=== PATIENT | male | born 1940 | race Hispanic/Latino ===

== ENCOUNTER → 2017-04-27 | Outpatient (CLI) | payer OTHER | END | disposition home or self-care (01) | LOC: RAH 12:34 | PROVIDERS: ATTEND Urology | DX: N13.30 Unspecified hydronephrosis (principal); N20.0 Calculus of kidney; K76.0 Fatty (change of) liver, not elsewhere classified; N28.1 Cyst of kidney, acquired; K57.30 Diverticulosis of large intestine without perforation or abscess without bleeding | CPT/HCPCS: 74176 ==

== ENCOUNTER → 2021-10-18 | Outpatient (CLI) | payer MEDICARE | END | disposition home or self-care (01) | LOC: RAH 11:40 | PROVIDERS: ATTEND Urology | DX: N28.1 Cyst of kidney, acquired (principal) | CPT/HCPCS: 76770 ==

== ENCOUNTER 2024-01-04 18:14 | Inpatient (IN) | payer MEDICARE ==
[~2024-01-04] VITALS: Ht 177.8 cm; Wt 94.8 kg
[2024-01-04 19:19] LABS: BASOPHILS # (AUTO) 0.07 K/uL (0.00-0.20); BASOPHILS % (AUTO) 0.5 % (0.0-5.0); EOSINOPHILS # (AUTO) 0.15 K/uL (0.00-0.70); EOSINOPHILS % (AUTO) 1.1 % (0.0-8.0); HEMATOCRIT 45.5 % (42-54); IMMATURE GRANULOCYTE ABSOLUTE 0.09 K/uL (0-1); LYMPHOCYTES # (AUTO) 1.2 K/uL (1.0-4.8); LYMPHOCYTES % (AUTO) 9.3 % (21.0-51.0); MEAN CORPUSCULAR HEMOGLOBIN 28.2 pg (27.0-33.0); MEAN CORPUSCULAR HGB CONC 30.8 g/dL (32.0-36.0); MEAN CORPUSCULAR VOLUME 91.7 fL (79-99); MONOCYTES # (AUTO) 1.2 K/uL (0.1-1.0); MONOCYTES % (AUTO) 9.3 % (3.0-13.0); NEUTROPHILS # (AUTO) 10.5 K/uL (1.8-7.7); NEUTROPHILS % (AUTO) 79.1 % (40.0-77.0); PLATELET COUNT (AUTO) 258 K/uL (130-400); RED BLOOD CELL COUNT(AUTO) 4.96 MIL/uL (4.50-6.20); RED CELL DISTRIBUTION WIDTH 13.9 % (11.0-15.5); WHITE BLOOD COUNT (AUTO) 13.2 K/uL (4.8-10.8)
[2024-01-04 19:29] LABS: CREATININE 1.5 mg/dL (0.5-1.3); POTASSIUM 3.9 mmol/L (3.5-5.1)
[2024-01-04 19:51] LABS: APPEARANCE,URINE CLEAR (CLEAR); BILIRUBIN,URINE NEGATIVE (NEGATIVE); COLOR,URINE YELLOW (YELLOW); GLUCOSE, URINE (UA) NEGATIVE (NEGATIVE); KETONES,URINE NEGATIVE (NEGATIVE); LEUKOCYTE ESTERASE ,URINE 500 Leu/uL (NEGATIVE); NITRATE,URINE NEGATIVE (NEGATIVE); PH,URINE 5.5 (5.0-8.0); PROTEIN,URINE 20 mg/dL (NEGATIVE); UROBILINOGEN,URINE 0.2 mg/dL (0.2-1.0)
[2024-01-04 19:55] LABS: ADD UA MICROSCOPIC YES
[2024-01-04 19:57] LABS: BACTERIA,URINE RARE /HPF (None Seen); MUCUS,URINE RARE LPF (None Seen); SQUAMOUS EPITHELIAL CELL,UR RARE /HPF (0-2); WBC,URINE 26-50 /HPF (0-1)
--- NOTE | 2024-01-04 20:19 | HMCIMG ---
CHEST 1VW CLINICAL HISTORY: sob COMPARISON: None TECHNIQUE: Single view of the chest was obtained. FINDINGS: Lungs are hypoventilated. The cardiac size and mediastinum are unremarkable. The bony structures are within normal limits. IMPRESSION: Hypoventilation.
--- NOTE | 2024-01-04 20:35 | ERN ---
ED Note History of Present Illness Stated Complaint: SENT BY DOCTOR Chief Complaint: UTI without Fever Time Seen by MD: 18:31 Time Seen by Midlevel: 18:31 Dictation: The patient is an 83-year-old male with a history of BPH, glaucoma, self catheterization who presents to the emergency department with complaints of generalized body weakness for three weeks. Per patient's patient was sent over by primary doctor for IV antibiotics due to failed outpatient UTI treatment. Per patient was treated with Levaquin, then Augmentin. Denies any fevers, vomiting or diarrhea. Allergies: Coded Allergies: No Known Allergies (Unverified Allergy, Unknown, 01/04/24) Past Medical History Past Medical History: Anxiety, High Cholesterol, UTI, Other Additional Past Medical Hx: GLAUCOMA, BPH, Surgical History: Other RN Note Reviewed/Agreed w/PFSH: Yes Review of System Dictation Constitutional: Negative for fever,chills, and weight loss Eyes: Negative for injury, pain,redness, and discharge ENT: Negative for injury,pain or swelling Cardiovascular: Negative for chest pain, palpitations, and edema Respiratory: Negative for shortness of breath, cough, and wheezing, Abdomen/GI: Negative for abdominal pain, vomiting, diarrhea, and constipation positive for nausea Back: Negative for injury and pain : Negative for injury, bleeding and discharge MS/Extremity: Negative for injury and deformity Skin: Negative for rash, and discoloration Neuro: Negative for headache, numbness, tingling, and seizure positive for weakness Psych: Negative for suicide ideation, homicidal ideation, and hallucinations Initial Vital Sign VS Vital Signs Date Time Temp Pulse Resp B/P (MAP) Pulse Ox O2 Delivery O2 Flow Rate FiO2 01/04/24 18:41 99.3 88 20 118/59 94 Room Air 01/04/24 19:24 0 21 Physical Exam Dictation Vital Signs reviewed General Appearance: Alert, oriented x 3, no acute distress, well developed, nourished. Head and Face: non-traumatic. Eyes: PERRL, pink conjunctivas, eyelid no trauma, anterior chamber with arcus senilis. Ears: Pinnas intact and no signs of trauma or erythema ear canals clear and no discharge TM no erythema Nose: No discharge, no bleeding. Oropharynx: Mouth normal, tongue pink. pharynx clear,no erythema, tonsils no exudates, no abscesses noted, mucous membrane moist Neck: Supple, non-tender, no thyromegaly, no masses, no JVD, no bruits Breast:Deferred Chest:No tenderness, no crepitus, no paradoxical movement, no retractions Lungs:Clear, well-ventilated, symmetric, no rales, no wheezing, no rhonchi, no stridor, good breath sounds bilaterally Heart: Regular rate, regular rhythm, no murmur, no gallops Vascular: no peripheral edema, Abdomen: Firm, positive bowel sounds, nondistended, no guarding, nontender, no rebound, no masses no hepatomegaly, no splenomegaly, no Mueller's sign, no hernias. Rectal: Deferred Genital: Deferred Neurological: Normal speech, motor function intact, sensory function intact Musculoskeletal: Neck nontender, full range of motion, back nontender, full range of motion, Extremities: nontender, full range of motion Skin: Color pink, dry, no turgor, no rash, no lacerations, no abrasions, no contusions. Lymphatic: Deferred Results (Laboratory/Radiology) Laboratory/Radiology Laboratory Tests Test 01/04/24 19:11 01/04/24 19:30 White Blood Count 13.2 K/uL (4.8-10.8) H Red Blood Count 4.96 MIL/uL (4.50-6.20) Hemoglobin 14.0 g/dL (14.0-18.0) Hematocrit 45.5 % (42-54) Mean Corpuscular Volume 91.7 fL (79-99) Mean Corpuscular Hemoglobin 28.2 pg (27.0-33.0) Mean Corpuscular Hemoglobin Concent 30.8 g/dL (32.0-36.0) L Red Cell Distribution Width 13.9 % (11.0-15.5) Platelet Count 258 K/uL (130-400) Mean Platelet Volume 9.4 fL (7.5-10.5) Immature Granulocyte % (Auto) 0.7 % (0-1) Neutrophils (%) (Auto) 79.1 % (40.0-77.0) H Lymphocytes (%) (Auto) 9.3 % (21.0-51.0) L Monocytes (%) (Auto) 9.3 % (3.0-13.0) Eosinophils (%) (Auto) 1.1 % (0.0-8.0) Basophils (%) (Auto) 0.5 % (0.0-5.0) Neutrophils # (Auto) 10.5 K/uL (1.8-7.7) H Lymphocytes # (Auto) 1.2 K/uL (1.0-4.8) Monocytes # (Auto) 1.2 K/uL (0.1-1.0) H Eosinophils # (Auto) 0.15 K/uL (0.00-0.70) Basophils # (Auto) 0.07 K/uL (0.00-0.20) Absolute Immature Granulocyte (auto 0.09 K/uL (0-1) Nucleated Red Blood Cells 0.0 % (0.0-0.19) Sodium Level 133 mmol/L (136-145) L Potassium Level 3.9 mmol/L (3.5-5.1) Chloride Level 96 mmol/L (101-111) L Carbon Dioxide Level 35 mmol/L (21-32) H Blood Urea Nitrogen 25 mg/dL (7-18) H Creatinine 1.5 mg/dL (0.5-1.3) H Glomerular Filtration Rate Calc 46 mL/min (>90) Random Glucose 145 mg/dL (70-105) H Lactic Acid Level 1.9 mmol/L (0.8-2.5) Total Calcium 9.3 mg/dL (8.5-10.1) Troponin I High Sensitivity 6 ng/L (4-75) Urine Color YELLOW (YELLOW) Urine Appearance CLEAR (CLEAR) Urine pH 5.5 (5.0-8.0) Urine Specific [place] 1.020 (1.001-1.031) Urine Protein 20 mg/dL (NEGATIVE) H Urine Glucose (UA) NEGATIVE mg/dL (NEGATIVE) Urine Ketones NEGATIVE mg/dL (NEGATIVE) Urine Occult Blood +- (TRACE) (NEGATIVE) H Urine Nitrate NEGATIVE (NEGATIVE) Urine Bilirubin NEGATIVE mg/dL (NEGATIVE) Urine Urobilinogen 0.2 mg/dL (0.2-1.0) Urine Leukocyte Esterase 500 Pretty/uL (NEGATIVE) H Urine RBC 2-5 /HPF (0-1) H Urine WBC 26-50 /HPF (0-1) H Urine Squamous Epithelial Cells RARE /HPF (0-2) Urine Bacteria RARE /HPF (None Seen) REASON: sob ORDERING PHYSICIAN: ROSE MARIE ORTA MEAT CARRIER PROCEDURE: CXR1VW - CHEST 1VW CHEST 1VW CLINICAL HISTORY: sob COMPARISON: None TECHNIQUE: Single view of the chest was obtained. FINDINGS: Lungs are hypoventilated. The cardiac size and mediastinum are unremarkable. The bony structures are within normal limits. IMPRESSION: Hypoventilation. Labs Reviewed?: Yes EKG: (+) rhythm (Sinus rhythm), (+) FL (180) EKG Comment: EKG 01/04/20241946 ventricular rate 86, regular rate and rhythm, normal sinus rhythm, no STEMI. ED Course ED Course Orders Procedure Category Date Status Time Cbc With Differential LAB 01/04/24 In Process 19:00 Troponin I High LAB 01/04/24 Complete Sensitivity 19:00 Urinalysis Profile LAB 01/04/24 Complete 19:00 12 Lead Ekg Tracing- EKG 01/04/24 Logged Technical 19:00 Chest 1vw RAD 01/04/24 Resulted 19:00 Basic Metabolic Panel LAB 01/04/24 Complete 19:00 Blood Cult ANKUR 01/04/24 In Process 19:34 Lactic Acid LAB 01/04/24 Complete 19:34 Cefepime Hcl 2 Gm PHA 01/04/24 In Process Vial (Maxipime 2 Gm Vi 20:00 0.9%Nacl 1000ml (Ns PHA 01/04/24 Complete 1000ml) 20:00 Culture Urine ANKUR 01/04/24 In Process 19:56 Admit Orders ADM 01/04/24 Transmitted 21:42 Edm Admit Bridge Order ADM 01/04/24 Verified 21:50 Current Medications Medications (Trade) Dose Ordered Sig/Jimmy Route PRN Reason Start Time Stop Time Status Last Admin Dose Admin Cefepime HCl (MAXipime 2 gm vial) 2 gm ONCE IVPB 01/04/24 20:00 01/14/24 19:59 01/04/24 21:16 Sodium Chloride 1,000 ml @ 0 mls/hr ONCE ONCE IV 01/04/24 20:00 01/04/24 20:01 DC 01/04/24 21:16 Vital Signs Date Time Temp Pulse Resp B/P (MAP) Pulse Ox O2 Delivery O2 Flow Rate FiO2 01/04/24 19:24 97.3 88 18 127/59 95 Room Air* 0 21 01/04/24 18:41 99.3 88 20 118/59 94 Room Air Medical Decision Making MDM MDM: The patient is an 83-year-old male history of BPH, glaucoma, self catheterization who presents to the emergency department with complaints of generalized body weakness for three weeks. Per patient's patient was sent over by primary doctor for IV antibiotics due to failed outpatient UTI treatment. Per patient was treated with Levaquin, then Augmentin. Denies any fevers, vomiting or diarrhea. CBC showed mild leukocytosis, no anemia, chemistry showed elevated BUN and creatinine, hyponatremia, hypochloremia, patient received a L of fluids in the ER. Urinalysis positive for UTI. Patient started on cefepime will be admitted for further management. Differential diagnosis: Sepsis, UTI, pyelonephritis, electrolyte imbalance, acute kidney injury Comorbidities: Hyperlipidemia, kidney stones, hearing loss Tests considered and not ordered secondary to shared decision making include: none Previous outside records reviewed: none Risk of complication and/or morbidity or mortality of patient management: The patient meets criteria for admission. Need for emergency major/minor surgery: No There are no social concerns with this patient. I independently interpreted the tests I ordered (labs, urinalysis, etc.). I discussed the case with the hospitalist for admission. Deepika who accepts admission I discussed the case with the following specialists: none. Historian: pateint. I independently interpreted imaging studies and EKGs that I ordered (US, CT, XR, EKG, etc.). External chart review: none. Medical management and examination interpretation discussions were had by me with other qualified healthcare professionals as indicated for the patient's care. DX & DISP Disposition: Inpatient Decision to Admit Date: Jan 04, 2024 Decision to Admit Time: 21:52 Departure Impression: Primary Impression: UTI (urinary tract infection) Additional Impressions: Failure of outpatient treatment, Leukocytosis, Acute kidney injury, Hyponatremia, Hypochloremia, Weakness, Dehydration Condition: Stable Referrals: NAYELY PEREZ MD (PCP) I have reviewed the case, and I agree with, Diagnosis and Plan ROSE MARIE ORTA MEAT CARRIER Jan 04, 2024 20:35
[2024-01-04] MEDS: 0.9%NACL 1000ML 1,000 ML IV ONE (21:16)
[2024-01-04] MEDS: ceFEPime HCL 2 GM VIAL IVPB SCH (21:16)
--- NOTE | 2024-01-04 23:28 | HP ---
[facility] HISTORY AND PHYSICAL Date of Service: Jan 04, 2024 Time of Service: 23:28 Supervising/attending physician: Dr. Rich and Dr. Caren Downing HISTORY OF PRESENT ILLNESS: Mr. Castillo is an 83-year-old male with a history of anxiety, hypercholesterolemia, BPH, glaucoma, recurrent UTIs, and self catheterization who presented to [facility] emergency department for evaluation of generalized body weakness for three weeks. Per patient's patient was sent over by primary doctor for IV antibiotics due to failed outpatient UTI treatment. The patient reports that due to self cath he gets infections twice a year, but responds well to antibiotic treatments pretty fast. Patient reports that he has was placed on Levaquin with no improvement of symptoms then on Augmentin still with no improvement of symptoms. Patient states that his urologist is Dr. Davis, but is retiring soon and need to find a new urologist. The patient denied any fevers, vomiting, or diarrhea. WBC 13.2, UA + LUEK est. GFR 46. ED administered Cefepime and NS 1 L bolus. ED provider requested [facility] admit the patient with the diagnosis of UTI, failed of a patient treatment, leukocytosis, KANDACE, hyponatremia, hypochloremia, weakness, and dehydration. I went to assess the patient at bedside. Patient appeared comfortable, in no distress, breathing even and unlabored. I informed the patient and significant other of labs, diagnostics, and plan of care. They verbalized understanding and are in agreement with the plan. Plan and assessment are listed below. REVIEW OF SYSTEMS 12-point ROS reviewed with patient. All pertinent positives mentioned above. O therwise negative, non-pertinent, or noncontributory. Past Medical History: Anxiety, High Cholesterol, UTI, glaucoma, BPH Surgical History: Noncontributory Social History: Denied: alcohol, tobacco, illicit drug use Coded Allergies: No Known Allergies (Unverified Allergy, Unknown, 01/04/24) PHYSICAL EXAM GENERAL APPEARANCE: The patient is awake, alert, and oriented, in no acute cardiopulmonary distress. NEUROLOGICAL: Cranial nerves II-XII grossly intact. Motor is 5/5 in bilateral upper and lower extremities proximal to distal. No sensory deficits. HEENT: Face is symmetric. Pupils are equal and reactive. Extraocular movements are intact. NECK: Supple. No JVD. No thyromegaly. No submental, submandibular, pre- /postauricular, occipital or supraclavicular lymphadenopathy. CHEST: Normal chest expansion. No Telemetry. LUNGS: Absence of any rales, rhonchi or any wheezing. CARDIOVASCULAR: Regular. S1 and S2 normal. No appreciable rubs, murmurs or gallops. ABDOMEN: Soft, nontender, and nondistended. There is no rebound, voluntary guarding, or rigidity. : Deferred. No Murry. EXTREMITIES: Non-edematous and not cyanotic. No clubbing. Good capillary refill. SKIN: No skin breakdown. Vital Sign (Last 24 Hours) 01/04/24 01/04/24 19:24 23:00 Temp 97.3 Pulse 80 Resp 18 B/P (MAP) 140/70 Pulse Ox 96 O2 Delivery Room Air* O2 Flow Rate 0 FiO2 21 LABS: Laboratory: Test 01/04/24 19:30 01/04/24 19:11 Range/Units Urine Color YELLOW YELLOW Urine Appearance CLEAR CLEAR Urine pH 5.5 5.0-8.0 Urine Specific [place] 1.020 1.001-1.031 Urine Protein 20 H NEGATIVE mg/dL Urine Glucose (UA) NEGATIVE NEGATIVE mg/dL Urine Ketones NEGATIVE NEGATIVE mg/dL Urine Occult Blood +- (TRACE) H NEGATIVE Urine Nitrate NEGATIVE NEGATIVE Urine Bilirubin NEGATIVE NEGATIVE mg/dL Urine Urobilinogen 0.2 0.2-1.0 mg/dL Urine Leukocyte Esterase 500 H NEGATIVE Pretty/uL Urine RBC 2-5 H 0-1 /HPF Urine WBC 26-50 H 0-1 /HPF Urine Squamous Epithelial Cells RARE 0-2 /HPF Urine Bacteria RARE None Seen /HPF White Blood Count 13.2 H 4.8-10.8 K/uL Red Blood Count 4.96 4.50-6.20 MIL/uL Hemoglobin 14.0 14.0-18.0 g/dL Hematocrit 45.5 42-54 % Mean Corpuscular Volume 91.7 79-99 fL Mean Corpuscular Hemoglobin 28.2 27.0-33.0 pg Mean Corpuscular Hemoglobin Concent 30.8 L 32.0-36.0 g/dL Red Cell Distribution Width 13.9 11.0-15.5 % Platelet Count 258 130-400 K/uL Mean Platelet Volume 9.4 7.5-10.5 fL Immature Granulocyte % (Auto) 0.7 0-1 % Neutrophils (%) (Auto) 79.1 H 40.0-77.0 % Lymphocytes (%) (Auto) 9.3 L 21.0-51.0 % Monocytes (%) (Auto) 9.3 3.0-13.0 % Eosinophils (%) (Auto) 1.1 0.0-8.0 % Basophils (%) (Auto) 0.5 0.0-5.0 % Neutrophils # (Auto) 10.5 H 1.8-7.7 K/uL Lymphocytes # (Auto) 1.2 1.0-4.8 K/uL Monocytes # (Auto) 1.2 H 0.1-1.0 K/uL Eosinophils # (Auto) 0.15 0.00-0.70 K/uL Basophils # (Auto) 0.07 0.00-0.20 K/uL Absolute Immature Granulocyte (auto 0.09 0-1 K/uL Nucleated Red Blood Cells 0.0 0.0-0.19 % White Cell Morphology Comment See comments Red Blood Cell Morphology POIKILOCYTOSIS 1+ Sodium Level 133 L 136-145 mmol/L Potassium Level 3.9 3.5-5.1 mmol/L Chloride Level 96 L 101-111 mmol/L Carbon Dioxide Level 35 H 21-32 mmol/L Blood Urea Nitrogen 25 H 7-18 mg/dL Creatinine 1.5 H 0.5-1.3 mg/dL Glomerular Filtration Rate Calc 46 >90 mL/min Random Glucose 145 H 70-105 mg/dL Lactic Acid Level 1.9 0.8-2.5 mmol/L Total Calcium 9.3 8.5-10.1 mg/dL Troponin I High Sensitivity 6 4-75 ng/L Current Medications Medications (Trade) Dose Ordered Sig/Jimmy Route PRN Reason Start Time Stop Time Status Last Admin Dose Admin Acetaminophen (TYLenol 325MG TAB) 650 mg Q6H PRN PO FEVER/MILD PAIN LEVEL 1-3 01/04/24 23:30 02/03/24 23:29 UNV Acetaminophen (TYLenol 650MG SUPPOSITORY) 650 mg Q6H PRN RC FEVER / MILD PAIN 1-3 IF NPO 01/04/24 23:30 02/03/24 23:29 UNV Acetaminophen/ Hydrocodone Bitart (NORco 5/325MG) 1 tab Q6H PRN PO MILD PAIN (1-3) 01/04/24 23:30 01/09/24 23:29 UNV Cefepime HCl (MAXipime 2 gm vial) 2 gm ONCE IVPB 01/04/24 20:00 01/14/24 19:59 01/04/24 21:16 2 GM Docusate Sodium (COLace 100MG CAP) 100 mg BID PRN PO c 01/04/24 23:30 02/03/24 23:29 UNV Enoxaparin Sodium (Lovenox) 30 mg DAILY SQ 01/05/24 09:00 02/04/24 08:59 UNV Famotidine (Pepcid 20mg Tab) 20 mg BID PO 01/05/24 09:00 02/04/24 08:59 UNV Hydralazine HCl (APRESOLine 20MG INJ) 10 mg Q2H PRN IV SBP GREATER THAN 160 01/04/24 23:30 02/03/24 23:29 UNV Insulin Human Regular (humuLIN R 100 UNIT/ML 3ML) INSULIN SLIDING SCAL... ACHS SQ 01/05/24 07:30 02/04/24 07:29 UNV Lactulose (Constulose 20gm/ 30ml Udcup) 20 gm Q6H PRN PO CONSTIPATION 01/04/24 23:30 02/03/24 23:29 UNV Ondansetron HCl (zoFRAN 4MG INJ) 4 mg Q6H PRN IVP NAUSEA/VOMITING 01/04/24 23:30 02/03/24 23:29 UNV Sodium Chloride 1,000 ml @ 75 mls/hr [id number] IV 01/04/24 23:30 02/03/24 23:29 UNV Temazepam (restORIL 15 MG CAP) 15 mg HS PRN PO INSOMNIA/SLEEP 01/04/24 23:30 02/03/24 23:29 UNV DIAGNOSTICS / RADIOLOGY: [ ] ASSESSMENT/ Problem list: Acute complicated cystitis with failed outpatient antibiotic therapy, POA Acute kidney injury, GFR 46, POA Recurrent UTI with hx of self catheterization Leukocytosis Electrolyte derangement (hyponatremia, hypochloremia) Hyperglycemia chronic problem list: anxiety, hypercholesterolemia, BPH, glaucoma, recurrent UTIs, self catheterization hx of kidney stones PLAN: Admit to medical floor Continue Cefepime. Start NS at 75 ml/hr. (ED administered NS 1L bolus). PRN medications for pain management, N/V, constipation, hypertension F/u urine cultures. Consult urologist once there is one available. (No urologist coverage on 01/05/24) Monitor renal and liver function. Monitor electrolytes and treat accordingly. DVT and GI prophylaxis. AM labs. Additional Plan and Assessment: Neurological: Avoid psychoactive medications as much as possible. Maintain adequate lighting during the daytime and a quiet environment at night with low light level to prevent acute delirium. Continue with seizure, fall, and aspiration precaution. Antiemetics and pain management. Respiratory: Monitor respiratory status and maintain adequate oxygenation. Administer oxygen therapy as needed. Titrate oxygen therapy PRN to keep SpO2 >/= 92%. Monitor ABGs and CXR as needed. Nebulizer therapy, CPT, and CPAP/BIPAP PRN. Cardiovascular: Continues telemetry pack monitoring. Blood pressure checks every 4 hours and as needed. Spread cardioprotective medications evenly throughout the day. Monitor for arrhythmias. Maintain adequate perfusion pressures, keep MAP >/= 65 mmHg. Gastrointestinal: Follow dietary recommendations. Advance nutrition as tolerated. Monitor albumin and pre albumin. Aspiration precautions. Prokinetic agents and laxatives as needed. Renal: Keep the patient in a euvolemic state. Correct electrolytes accordingly. Avoid Nephrotoxic medications. Adjust medications according to renal function. Infectious Diseases: Monitor for any fevers. Follow white blood cell count. Cultures and inflammatory markers as needed. Antibiotic therapy tailored to culture results. De-escalate antibiotics if possible. Endocrine: Monitor blood sugars. Avoid hypoglycemic events. Insulin coverage as per insulin sliding scale protocol. Hematologic: Monitor closely for any signs or symptoms of bleeding. Keep Hgb >/= 7. Avoid blood transfusions unless patient is symptomatic or has an active bleed. Skin: Monitor for any skin breakdown. Turn patient as per pressure ulcer prevention protocol. Prophylaxis: Continue GI and DVT prophylaxis. Code status: Full Code. ADVANCED CARE PLANNING 1. Which of the following were discussed? Hospice Care - No Therapeutic options - Yes Advance Directives - Yes Other discussions - 2. Discussed with who? Patient 3. Voluntary nature of this service was explained to the patient? Yes 4. Amount of time spent - ____Over 35 minutes__ 5. Reviewed by Physician? (if this service was performed by NPP) Yes Patient seen and examined by me. Agree with note by VERTICAL ROLL OPERATOR SEE ADDITIONAL ORDERS PER CHART DISCUSSED WITH NURSING STAFF RITCHIE DUCKWORTH DENTAL TECH Jan 04, 2024 23:28
[2024-01-04] MEDS ORDERED: ondanSETRON 4MG INJ IVP PRN (23:30)
[2024-01-04] MEDS ORDERED: LACTULOSE 20 GM/30 ML UDCUP PO PRN (23:30)
[2024-01-04] MEDS ORDERED: TEMAZepam 15 MG CAPSULE PO PRN (23:30)
[2024-01-04] MEDS ORDERED: HYDROcodone/APAP 5/325 1 TAB TABLET PO PRN (23:30)
[2024-01-04] MEDS ORDERED: acetaMINOPHEN 325 MG TAB PO PRN (23:30)
[2024-01-04] MEDS ORDERED: acetaMINOPHEN 650 MG SUPPOSITORY RC PRN (23:30)
[2024-01-04] MEDS ORDERED: hydrALAZine 20MG/ML VIAL IV PRN (23:30)
[2024-01-04] MEDS ORDERED: doCUSate SODIUM 100 MG CAP PO PRN (23:30)
[2024-01-05] MEDS: 0.9%NACL 1000ML 1,000 ML IV SCH (01:28)
[2024-01-05] MEDS: ceFEPime HCL 1 GM VIAL IVPB SCH (06:04)
--- NOTE | 2024-01-05 06:58 | EKG ---
[facility] Test Date: 2024-01-04 Test Time: 19:47:06 Pat Name: ANG BARRIOS Department: EDHIP Room: 404 Gender: M Cone Former: drake : 1940 Requested By: ROSE MARIE ORTA Order Number: [id number] Reading MD: Kvng Humphries Measurements Intervals [place] Rate: 86 P: 80 [place]: 180 QRS: -5 QRSD: 90 T: 73 QT: 354 QTc: 423 Interpretive Statements Sinus rhythm No previous ECG available for comparison Electronically Signed On 01-05-2024 19:12:43 PROGRAM SUPERVISOR by Kvng Humphries Please click the below link to view image of tracing.
[2024-01-05 07:16] LABS: BASOPHILS # (AUTO) 0.05 K/uL (0.00-0.20); BASOPHILS % (AUTO) 0.4 % (0.0-5.0); EOSINOPHILS # (AUTO) 0.21 K/uL (0.00-0.70); EOSINOPHILS % (AUTO) 1.6 % (0.0-8.0); HEMATOCRIT 44.7 % (42-54); IMMATURE GRANULOCYTE ABSOLUTE 0.11 K/uL (0-1); LYMPHOCYTES # (AUTO) 1.8 K/uL (1.0-4.8); LYMPHOCYTES % (AUTO) 13.7 % (21.0-51.0); MEAN CORPUSCULAR HEMOGLOBIN 27.8 pg (27.0-33.0); MEAN CORPUSCULAR HGB CONC 30.4 g/dL (32.0-36.0); MEAN CORPUSCULAR VOLUME 91.2 fL (79-99); MONOCYTES # (AUTO) 1.2 K/uL (0.1-1.0); MONOCYTES % (AUTO) 8.9 % (3.0-13.0); NEUTROPHILS # (AUTO) 9.9 K/uL (1.8-7.7); NEUTROPHILS % (AUTO) 74.6 % (40.0-77.0); PLATELET COUNT (AUTO) 273 K/uL (130-400); RED CELL DISTRIBUTION WIDTH 13.6 % (11.0-15.5); WHITE BLOOD COUNT (AUTO) 13.3 K/uL (4.8-10.8)
[2024-01-05] MEDS: INSULIN humuLIN R 100 UNIT/ML 3ML SQ SCH (07:30)
[2024-01-05 07:40] LABS: CREATININE 1.2 mg/dL (0.5-1.3); PHOSPHORUS 3.3 mg/dL (2.5-4.9); POTASSIUM 4.1 mmol/L (3.5-5.1); THYROID STIMULATING HORMONE 2.28 uIU/mL (0.36-3.74)
--- NOTE | 2024-01-05 08:13 | PN ---
[facility] PROGRESS NOTE Date of Service: Jan 05, 2024 Time of Service: 08:03 SUBJECTIVE: [ ] This is a 83-year-old male presents in ED with chief complaints of generalized badillo weakness for three weeks. Patient was sent by his primary PCP for IV antibiotics due to failed outpatient UTI treatment. Patient also reports having episodes of low blood sugars at home. Patient was seen and examined with Dr. Bravo patient is alert oriented x3. ID on board we will follow his recommendations. REVIEW OF SYSTEMS 12-point ROS reviewed with patient. All pertinent positives mentioned above. Otherwise negative, non-pertinent, or noncontributory. PHYSICAL EXAM GENERAL APPEARANCE: The patient is awake, alert, and oriented, in no acute cardiopulmonary distress. NEUROLOGICAL: Cranial nerves II-XII grossly intact. Motor is 5/5 in bilateral upper and lower extremities proximal to distal. No sensory deficits. HEENT: Face is symmetric. Pupils are equal and reactive. Extraocular movements are intact. NECK: Supple. No JVD. No thyromegaly. No submental, submandibular, pre-/postauricular, occipital or supraclavicular lymphadenopathy. CHEST: Normal chest expansion. No Telemetry. LUNGS: Absence of any rales, rhonchi or any wheezing. CARDIOVASCULAR: Regular. S1 and S2 normal. No appreciable rubs, murmurs or gallops. ABDOMEN: Soft, nontender, and nondistended. There is no rebound, voluntary guarding, or rigidity. : Deferred. No Murry. EXTREMITIES: Non-edematous and not cyanotic. No clubbing. Good capillary refill. SKIN: No skin breakdown. Vital Signs (last 8hr) Date Time Temp Pulse Resp B/P (MAP) Pulse Ox O2 Delivery O2 Flow Rate FiO2 01/05/24 07:58 95 17 125/52 96 Room Air* 0 01/05/24 06:07 89 18 135/77 96 Room Air* 0 01/05/24 03:35 81 18 138/78 98 Room Air* 0 21 01/05/24 02:00 79 18 133/65 96 Room Air* 0 01/05/24 01:00 83 18 126/67 96 Room Air* 0 21 LABS: Laboratory: Test 01/05/24 07:03 01/04/24 19:30 01/04/24 19:11 Range/Units White Blood Count 13.3 H 4.8-10.8 K/uL Red Blood Count 4.90 4.50-6.20 MIL/uL Hemoglobin 13.6 L 14.0-18.0 g/dL Hematocrit 44.7 42-54 % Mean Corpuscular Volume 91.2 79-99 fL Mean Corpuscular Hemoglobin 27.8 27.0-33.0 pg Mean Corpuscular Hemoglobin Concent 30.4 L 32.0-36.0 g/dL Red Cell Distribution Width 13.6 11.0-15.5 % Platelet Count 273 130-400 K/uL Mean Platelet Volume 9.3 7.5-10.5 fL Immature Granulocyte % (Auto) 0.8 0-1 % Neutrophils (%) (Auto) 74.6 40.0-77.0 % Lymphocytes (%) (Auto) 13.7 L 21.0-51.0 % Monocytes (%) (Auto) 8.9 3.0-13.0 % Eosinophils (%) (Auto) 1.6 0.0-8.0 % Basophils (%) (Auto) 0.4 0.0-5.0 % Neutrophils # (Auto) 9.9 H 1.8-7.7 K/uL Lymphocytes # (Auto) 1.8 1.0-4.8 K/uL Monocytes # (Auto) 1.2 H 0.1-1.0 K/uL Eosinophils # (Auto) 0.21 0.00-0.70 K/uL Basophils # (Auto) 0.05 0.00-0.20 K/uL Absolute Immature Granulocyte (auto 0.11 0-1 K/uL Nucleated Red Blood Cells 0.0 0.0-0.19 % Sodium Level 136 136-145 mmol/L Potassium Level 4.1 3.5-5.1 mmol/L Chloride Level 99 L 101-111 mmol/L Carbon Dioxide Level 31 21-32 mmol/L Blood Urea Nitrogen 19 H 7-18 mg/dL Creatinine 1.2 0.5-1.3 mg/dL Glomerular Filtration Rate Calc 60 >90 mL/min Random Glucose 109 H 70-105 mg/dL Total Calcium 9.1 8.5-10.1 mg/dL Phosphorus Level 3.3 2.5-4.9 mg/dL Thyroid Stimulating Hormone (TSH) 2.28 0.36-3.74 uIU/mL Urine Color YELLOW YELLOW Urine Appearance CLEAR CLEAR Urine pH 5.5 5.0-8.0 Urine Specific [place] 1.020 1.001-1.031 Urine Protein 20 H NEGATIVE mg/dL Urine Glucose (UA) NEGATIVE NEGATIVE mg/dL Urine Ketones NEGATIVE NEGATIVE mg/dL Urine Occult Blood +- (TRACE) H NEGATIVE Urine Nitrate NEGATIVE NEGATIVE Urine Bilirubin NEGATIVE NEGATIVE mg/dL Urine Urobilinogen 0.2 0.2-1.0 mg/dL Urine Leukocyte Esterase 500 H NEGATIVE Pretty/uL Urine RBC 2-5 H 0-1 /HPF Urine WBC 26-50 H 0-1 /HPF Urine Squamous Epithelial Cells RARE 0-2 /HPF Urine Bacteria RARE None Seen /HPF White Cell Morphology Comment See comments Red Blood Cell Morphology POIKILOCYTOSIS 1+ Lactic Acid Level 1.9 0.8-2.5 mmol/L Troponin I High Sensitivity 6 4-75 ng/L Current Medications Medications (Trade) Dose Ordered Sig/Jimmy Route PRN Reason Start Time Stop Time Status Last Admin Dose Admin Acetaminophen (TYLenol 325MG TAB) 650 mg Q6H PRN PO FEVER/MILD PAIN LEVEL 1-3 01/04/24 23:30 02/03/24 23:29 Acetaminophen (TYLenol 650MG SUPPOSITORY) 650 mg Q6H PRN RC FEVER / MILD PAIN 1-3 IF NPO 01/04/24 23:30 02/03/24 23:29 Acetaminophen/ Hydrocodone Bitart (NORco 5/325MG) 1 tab Q6H PRN PO MILD PAIN (1-3) 01/04/24 23:30 01/09/24 23:29 Cefepime HCl (MAXipime 1 GM vial) 1 gm Q12H IVPB 01/05/24 05:00 01/15/24 04:59 01/05/24 06:04 1 GM Cefepime HCl (MAXipime 2 gm vial) 2 gm ONCE IVPB 01/04/24 20:00 01/04/24 23:43 DC 01/04/24 21:16 2 GM Docusate Sodium (COLace 100MG CAP) 100 mg BID PRN PO c 01/04/24 23:30 02/03/24 23:29 Enoxaparin Sodium (Lovenox) 30 mg DAILY SQ 01/05/24 09:00 02/04/24 08:59 Famotidine (Pepcid 20mg Tab) 20 mg Q24H PO 01/05/24 09:00 02/04/24 08:59 Hydralazine HCl (APRESOLine 20MG INJ) 10 mg Q2H PRN IV SBP GREATER THAN 160 01/04/24 23:30 02/03/24 23:29 Insulin Human Regular (humuLIN R 100 UNIT/ML 3ML) INSULIN SLIDING SCAL... ACHS SQ 01/05/24 07:30 02/04/24 07:29 Lactulose (Constulose 20gm/ 30ml Udcup) 20 gm Q6H PRN PO CONSTIPATION 01/04/24 23:30 02/03/24 23:29 Ondansetron HCl (zoFRAN 4MG INJ) 4 mg Q6H PRN IVP NAUSEA/VOMITING 01/04/24 23:30 02/03/24 23:29 Sodium Chloride 1,000 ml @ 75 mls/hr [id number] IV 01/04/24 23:30 02/03/24 23:29 01/05/24 01:28 75 MLS/HR Temazepam (restORIL 15 MG CAP) 15 mg HS PRN PO INSOMNIA/SLEEP 01/04/24 23:30 02/03/24 23:29 DIAGNOSTICS / RADIOLOGY: [ ] ASSESSMENT: UTI failed outpatient treatment POA Episodes of hypoglycemia POA Chronic problems. BPH, high cholesterol, anxiety. Chronic problems PLAN: [ ] Admit to medical floor Consult Infectious Disease for antibiotic stewardship guidance We will follow-up urine cultures, currently on cefepime1 g every 12 hours. Diabetes type a.c. HS monitoring with sliding scale. Review home medications Continue to replace electrolytes as per protocol Continue DVT GI prophylaxis Further orders as per response to treatment Disposition we will wait for ID recommendations urine cultures in process. Case discussed with Dr. Bravo care plan was agreed upon ATTESTATION BY PHYSICIAN I have seen and examined the patient. I reviewed the documentation, medical decision making, and treatment plan as noted by the mid-level provider above. I agree with the findings and plan of care. BLAYNE BRAVO MD, ELIZABETH NP Jan 05, 2024 08:12
[2024-01-05] MEDS: FAMOTIDINE 20MG TAB PO SCH (09:31)
--- NOTE | 2024-01-05 09:33 | NUR ---
Initial assessment SW met with pt and pt's daughter Alondra Fan. Pt reported having a hearing impediment. Ms Fan said that the pt resides with his spouse and denied food insecurity. Ms Fan said that the pt was independent prior to admission and denied using DME. Pt said that he is able to drive as needed. DCP is home. PCP is Dr Priyanka Mccallum and preferred pharmacy is [facility] . Addendum: 01/05/24 at 0935 by YOCASTA RAM Amended: Links added.
[2024-01-05] MEDS: ENOXAPARIN SODIUM 30 MG/0.3 ML SQ SCH (09:36)
--- NOTE | 2024-01-05 09:52 | HMCIMG ---
CT ABDOMEN/PELVIS W/O CONTRAST HISTORY: Lower abdominal discomfort COMPARISON: 11/27/2019 TECHNIQUE: Multiple sequential axial images of the abdomen and pelvis were obtained from the dome of the diaphragm through symphysis pubis. Patient was not given contrast through intravenous route. Oral contrast was not given. FINDINGS: No pleural effusion is seen bilaterally. Mild right middle lobe pulmonary infiltrates are seen. Degenerative changes of the thoracolumbar spine are present. The heart is not enlarged. Liver is enlarged with fatty changes measuring 19 cm. The liver, spleen, adrenal glands and pancreas are unremarkable. No hydronephrosis is seen on the left. Bilateral renal cysts are seen. There is right hydronephrosis and right hydroureter with 7 mm renal stone in the right proximal ureter. There appears to be large soft tissue mass in the right kidney measuring 8.6 x 7 cm. This may be related to complex cystic mass with neoplastic process not excluded. Contrast-enhanced CT is recommended for complete evaluation. There may be blood product versus soft tissue material there is diverticulosis. Noted in the right renal pelvis and proximal ureter. Tiny right renal pelvic stone is also seen. Fecal material is seen in the colon. There are normal size retroperitoneal and mesenteric lymph nodes. No ascites is seen. Atherosclerotic changes are present. Pelvic sidewalls are symmetric bilaterally. Bladder is well distended without wall thickening. IMPRESSION: 1. There is right hydronephrosis and right hydroureter with 7 mm renal stone in the right proximal ureter. There appears to be large soft tissue mass in the right kidney measuring 8.6 x 7 cm. This may be related to complex cystic mass with neoplastic process not excluded. Contrast-enhanced CT is recommended for complete evaluation. There may be blood product versus soft tissue material noted in the right renal pelvis and proximal ureter. Tiny right renal pelvic stone is also seen. CT was performed with one or more following dose reduction techniques: automated exposure control, adjustment of the mA and kv according to patient's size, or use of a iterative reconstruction technique.
[2024-01-05] MEDS ORDERED: COMPOUND IV REFRIGERATED 1 EACH IVSOLN MISC PRN (13:30)
[2024-01-05] MEDS ORDERED: COMPOUND IV MISC 1 EACH IVSOLN MISC PRN (13:30)
[2024-01-05] MEDS: MEROPENEM 1 GM in 0.9%NACL 100ML 100 ML IVPB SCH (14:12)
[2024-01-05] MEDS: MEROPENEM 1 GM VIAL ONE (14:13)
[2024-01-05] MEDS ORDERED: FINA5TAB41 PO (17:39)
[2024-01-05] MEDS ORDERED: TRAM100C3 PO (17:39)
[2024-01-05] MEDS ORDERED: SIMV-43 PO (17:39)
[2024-01-05] MEDS ORDERED: SERT-439 PO (17:39)
[2024-01-05] MEDS ORDERED: HYDR-3421 PO (17:39)
[2024-01-05] MEDS ORDERED: TRAZ-185 PO (17:39)
[2024-01-05] MEDS ORDERED: PANT20TA18 PO (17:39)
[2024-01-05] MEDS ORDERED: DORZ1DRO7 OP (17:41)
[2024-01-05] MEDS ORDERED: LATA2.5D14 OP (17:41)
--- NOTE | 2024-01-05 17:41 | NUR ---
HOME MEDICATIONS RECONCILED AT THIS TIME./SABRINA
--- NOTE | 2024-01-05 17:51 | NUR ---
ATTEMPTED REPORT, NO ANSWERM, BEDSIDE REPORT TO BE DONE PER SPECIALIST PHYSICIAN./SABRINA
[2024-01-05 18:10] VITALS: BP 124/72; PULSE 86; RESP 19; TEMP 98.4
[2024-01-05 19:30] VITALS: O2SAT 97
[2024-01-05 19:55] VITALS: BP 125/71; PULSE 82; RESP 20; TEMP 99.3
[2024-01-05 20:55] VITALS: O2SAT 96
[2024-01-05 23:14] VITALS: BP 131/75; PULSE 79; RESP 20; TEMP 98.7
--- NOTE | 2024-01-06 00:43 | CONS ---
INFECTIOUS DISEASE CONSULTATION NOTE DATE OF SERVICE: 01/05/2024 REQUESTING PHYSICIAN: Yaa Parisi NP. REASON FOR CONSULTATION: Sepsis and UTI. HISTORY OF PRESENT ILLNESS: An 83-year-old male with history of urinary retention, who do self-catheterization, BPH, recurrent UTI, who was sent to the Emergency Room with weakness ____ UTI. The patient had urine culture done, which came back with Klebsiella pneumoniae and E. coli. The patient was treated with levofloxacin and Augmentin and due to failure of treatment, the patient was sent to the Emergency Room for further care. The patient denies fever or chills. The patient does self-cauterization, like 4 times a day. Denies hematuria. Urinalysis came back positive. Cultures are pending. The patient has been started on cefepime. No cough, no hemoptysis or pleuritic pain. PAST MEDICAL HISTORY: * Urinary tract infection. * Dyslipidemia. * Nephrolithiasis. * BPH. * Glaucoma. * Urinary retention. * Obesity. PAST SURGICAL HISTORY: * Prostate surgery. * Back surgery. * Lithotripsy. ALLERGIES: No known drug allergy. CURRENT MEDICATIONS: Reviewed. SOCIAL HISTORY: , lives with . No alcohol, tobacco or illicit drug use. FAMILY HISTORY: Noncontributory. REVIEW OF SYSTEMS: CONSTITUTIONAL: Denies fever or chills. No weight loss or night sweats. EYES: No eye pain, no photophobia or diplopia. HENT: No sore throat, no rhinorrhea or earache. NECK: No neck pain or neck swelling. RESPIRATORY: No cough, no hemoptysis or pleuritic pain. CARDIOVASCULAR: No chest pain, palpitation, orthopnea. GENITOURINARY: Positive for urinary retention. No hematuria. CENTRAL NERVOUS SYSTEM: No headache, dyspnea, or slurred speech. PSYCHIATRY: No depression. No suicidal ideation. MUSCULOSKELETAL: No joint pain or joint swelling. PHYSICAL EXAMINATION: GENERAL: Elderly male, awake. VITAL SIGNS: Temperature 97.9, pulse 82, respiratory rate 18, BP 126/69. EYES: No icterus. Pupils equal and reactive. HENT: No oral thrush seen. Moist oral mucosa. NECK: Supple, no JVD or thyromegaly. LUNGS: Good air entry. No rales, no rhonchi. CARDIOVASCULAR: S1, S2 regular. No murmur heard. ABDOMEN: Full, soft, obese, nontender. Bowel sound is present. CENTRAL NERVOUS SYSTEM: Awake, alert, oriented x 3. No focal deficits. SKIN: No rashes, no itchiness. LYMPHATIC: No peripheral lymphadenopathy BACK: No deformity, no pressure ulcer. MUSCULOSKELETAL: No joint swelling, erythema or tenderness. LABORATORY DATA: Sodium 136, potassium 4.1, BUN 19, creatinine 1.2. WBC 13.3, hemoglobin 13.6, platelet 273. Urinalysis: WBC 13.3, platelet 273. Urinalysis: WBC 50, leukocyte esterase 500. RADIOLOGY: CT of the abdomen showed right right-sided hydronephrosis ____ with 7 mm renal stone ____. ASSESSMENT: An 83-year-old male presenting with weakness and urinary symptoms. CURRENT PROBLEMS: Include: * Urinary tract infection. * Right-sided hydronephrosis. * Polymicrobic infection. * Infection with multidrug resistant organism. * Leukocytosis. * Urinary retention. * Right renal cyst. PLAN: * Discontinue cefepime. * Start the patient on meropenem. * Follow up cultures. * Continue pain management. * Continue DVT prophylaxis. * Monitor electrolytes. * The patient will be followed up closely. Thank you for allowing me to participate in the care of this patient. TID: [id number] RECEIPT: [id number]
[2024-01-06 03:27] VITALS: BP 141/80; PULSE 78; RESP 20; TEMP 97.7
[2024-01-06 08:00] VITALS: BP 125/54; PULSE 93; RESP 17; TEMP 98.7; O2SAT 97
--- NOTE | 2024-01-06 08:42 | PN ---
[facility] PROGRESS NOTE Date of Service: Jan 06, 2024 Time of Service: 08:40 SUBJECTIVE: [ ] This is a 83-year-old male presents in ED with chief complaints of generalized badillo weakness for three weeks. Patient was sent by his primary PCP for IV antibiotics due to failed outpatient UTI treatment. Patient also reports having episodes of low blood sugars at home. Patient was seen and examined with Dr. Bravo patient is alert oriented x3. ID on board we will follow his recommendations. 01/06/2024. Patient is seen and examined with Dr. Bravo. Reviewed chart; patient is fully awake alert oriented x3. being followed ID started patient on Merrem IV. Blood culture so far negative urine cultures in process. REVIEW OF SYSTEMS 12-point ROS reviewed with patient. All pertinent positives mentioned above. Otherwise negative, non-pertinent, or noncontributory. PHYSICAL EXAM GENERAL APPEARANCE: The patient is awake, alert, and oriented, in no acute cardiopulmonary distress. NEUROLOGICAL: Cranial nerves II-XII grossly intact. Motor is 5/5 in bilateral upper and lower extremities proximal to distal. No sensory deficits. HEENT: Face is symmetric. Pupils are equal and reactive. Extraocular movements are intact. NECK: Supple. No JVD. No thyromegaly. No submental, submandibular, pre- /postauricular, occipital or supraclavicular lymphadenopathy. CHEST: Normal chest expansion. No Telemetry. LUNGS: Absence of any rales, rhonchi or any wheezing. CARDIOVASCULAR: Regular. S1 and S2 normal. No appreciable rubs, murmurs or gallops. ABDOMEN: Soft, nontender, and nondistended. There is no rebound, voluntary guarding, or rigidity. : Deferred. No Murry. EXTREMITIES: Non-edematous and not cyanotic. No clubbing. Good capillary refill. SKIN: No skin breakdown. Vital Signs (last 8hr) Date Time Temp Pulse Resp B/P (MAP) Pulse Ox O2 Delivery O2 Flow Rate FiO2 01/06/24 03:27 97.7 78 20 141/80 98 Room Air LABS: Laboratory: Test 01/06/24 04:51 01/05/24 07:03 01/04/24 19:30 01/04/24 19:11 Range/Units Whole Blood Glucose 144 H 70-110 MG/DL White Blood Count 13.3 H 4.8-10.8 K/uL Red Blood Count 4.90 4.50-6.20 MIL/uL Hemoglobin 13.6 L 14.0-18.0 g/dL Hematocrit 44.7 42-54 % Mean Corpuscular Volume 91.2 79-99 fL Mean Corpuscular Hemoglobin 27.8 27.0-33.0 pg Mean Corpuscular Hemoglobin Concent 30.4 L 32.0-36.0 g/dL Red Cell Distribution Width 13.6 11.0-15.5 % Platelet Count 273 130-400 K/uL Mean Platelet Volume 9.3 7.5-10.5 fL Immature Granulocyte % (Auto) 0.8 0-1 % Neutrophils (%) (Auto) 74.6 40.0-77.0 % Lymphocytes (%) (Auto) 13.7 L 21.0-51.0 % Monocytes (%) (Auto) 8.9 3.0-13.0 % Eosinophils (%) (Auto) 1.6 0.0-8.0 % Basophils (%) (Auto) 0.4 0.0-5.0 % Neutrophils # (Auto) 9.9 H 1.8-7.7 K/uL Lymphocytes # (Auto) 1.8 1.0-4.8 K/uL Monocytes # (Auto) 1.2 H 0.1-1.0 K/uL Eosinophils # (Auto) 0.21 0.00-0.70 K/uL Basophils # (Auto) 0.05 0.00-0.20 K/uL Absolute Immature Granulocyte (auto 0.11 0-1 K/uL Nucleated Red Blood Cells 0.0 0.0-0.19 % Sodium Level 136 136-145 mmol/L Potassium Level 4.1 3.5-5.1 mmol/L Chloride Level 99 L 101-111 mmol/L Carbon Dioxide Level 31 21-32 mmol/L Blood Urea Nitrogen 19 H 7-18 mg/dL Creatinine 1.2 0.5-1.3 mg/dL Glomerular Filtration Rate Calc 60 >90 mL/min Random Glucose 109 H 70-105 mg/dL Total Calcium 9.1 8.5-10.1 mg/dL Phosphorus Level 3.3 2.5-4.9 mg/dL Magnesium Level 1.90 1.6-2.6 mg/dL Thyroid Stimulating Hormone (TSH) 2.28 0.36-3.74 uIU/mL Urine Color YELLOW YELLOW Urine Appearance CLEAR CLEAR Urine pH 5.5 5.0-8.0 Urine Specific [place] 1.020 1.001-1.031 Urine Protein 20 H NEGATIVE mg/dL Urine Glucose (UA) NEGATIVE NEGATIVE mg/dL Urine Ketones NEGATIVE NEGATIVE mg/dL Urine Occult Blood +- (TRACE) H NEGATIVE Urine Nitrate NEGATIVE NEGATIVE Urine Bilirubin NEGATIVE NEGATIVE mg/dL Urine Urobilinogen 0.2 0.2-1.0 mg/dL Urine Leukocyte Esterase 500 H NEGATIVE Pretty/uL Urine RBC 2-5 H 0-1 /HPF Urine WBC 26-50 H 0-1 /HPF Urine Squamous Epithelial Cells RARE 0-2 /HPF Urine Bacteria RARE None Seen /HPF White Cell Morphology Comment See comments Red Blood Cell Morphology POIKILOCYTOSIS 1+ Lactic Acid Level 1.9 0.8-2.5 mmol/L Troponin I High Sensitivity 6 4-75 ng/L Current Medications Medications (Trade) Dose Ordered Sig/Jimmy Route PRN Reason Start Time Stop Time Status Last Admin Dose Admin Acetaminophen (TYLenol 325MG TAB) 650 mg Q6H PRN PO FEVER/MILD PAIN LEVEL 1-3 01/04/24 23:30 02/03/24 23:29 Acetaminophen (TYLenol 650MG SUPPOSITORY) 650 mg Q6H PRN RC FEVER / MILD PAIN 1-3 IF NPO 01/04/24 23:30 02/03/24 23:29 Acetaminophen/ Hydrocodone Bitart (NORco 5/325MG) 1 tab Q6H PRN PO MILD PAIN (1-3) 01/04/24 23:30 01/09/24 23:29 Cefepime HCl (MAXipime 1 GM vial) 1 gm Q12H IVPB 01/05/24 05:00 01/05/24 13:17 DC 01/05/24 06:04 1 GM Cefepime HCl (MAXipime 2 gm vial) 2 gm ONCE IVPB 01/04/24 20:00 01/04/24 23:43 DC 01/04/24 21:16 2 GM Docusate Sodium (COLace 100MG CAP) 100 mg BID PRN PO c 01/04/24 23:30 02/03/24 23:29 Enoxaparin Sodium (Lovenox) 30 mg DAILY SQ 01/05/24 09:00 12/8/24 08:59 01/06/24 08:32 30 MG Famotidine (Pepcid 20mg Tab) 20 mg Q24H PO 01/05/24 09:00 02/04/24 08:59 01/06/24 08:32 20 MG Hydralazine HCl (APRESOLine 20MG INJ) 10 mg Q2H PRN IV SBP GREATER THAN 160 01/04/24 23:30 02/03/24 23:29 Insulin Human Regular (humuLIN R 100 UNIT/ML 3ML) INSULIN SLIDING SCAL... ACHS SQ 01/05/24 07:30 02/04/24 07:29 Lactulose (Constulose 20gm/ 30ml Udcup) 20 gm Q6H PRN PO CONSTIPATION 01/04/24 23:30 02/03/24 23:29 Meropenem 1 gm/ Sodium Chloride 100 ml @ 33.333 mls/ hr Q8H IVPB 01/05/24 13:30 01/15/24 13:29 01/06/24 05:00 33.333 MLS/HR Ondansetron HCl (zoFRAN 4MG INJ) 4 mg Q6H PRN IVP NAUSEA/VOMITING 01/04/24 23:30 02/03/24 23:29 Sodium Chloride 1,000 ml @ 75 mls/hr [id number] IV 01/04/24 23:30 02/03/24 23:29 01/06/24 08:33 75 MLS/HR Temazepam (restORIL 15 MG CAP) 15 mg HS PRN PO INSOMNIA/SLEEP 01/04/24 23:30 02/03/24 23:29 DIAGNOSTICS / RADIOLOGY: [ ] ASSESSMENT: UTI failed outpatient treatment POA Episodes of hypoglycemia POA Chronic problems. BPH, high cholesterol, anxiety. Chronic problems PLAN: [ ] Admit to medical floor Consult Infectious Disease for antibiotic stewardship guidance We will follow-up urine cultures, antibiotics changed to Merrem IV Diabetes type a.c. HS monitoring with sliding scale. Continue to replace electrolytes as per protocol Continue DVT GI prophylaxis Further orders as per response to treatment Disposition we will wait for ID recommendations urine cultures in process. Case discussed with Dr. Bravo care plan was agreed upon ATTESTATION BY PHYSICIAN I have seen and examined the patient. I reviewed the documentation, medical decision making, and treatment plan as noted by the mid-level provider above. I agree with the findings and plan of care. BLAYNE BRAVO MD, ELIZABETH NP Jan 06, 2024 08:42
[2024-01-06 09:10] LABS: BASOPHILS # (AUTO) 0.05 K/uL (0.00-0.20); BASOPHILS % (AUTO) 0.4 % (0.0-5.0); EOSINOPHILS # (AUTO) 0.19 K/uL (0.00-0.70); EOSINOPHILS % (AUTO) 1.5 % (0.0-8.0); HEMATOCRIT 45.2 % (42-54); IMMATURE GRANULOCYTE ABSOLUTE 0.11 K/uL (0-1); LYMPHOCYTES # (AUTO) 1.5 K/uL (1.0-4.8); MEAN CORPUSCULAR HGB CONC 30.3 g/dL (32.0-36.0); MEAN CORPUSCULAR VOLUME 92.4 fL (79-99); MONOCYTES # (AUTO) 1.1 K/uL (0.1-1.0); MONOCYTES % (AUTO) 8.6 % (3.0-13.0); NEUTROPHILS # (AUTO) 9.7 K/uL (1.8-7.7); NEUTROPHILS % (AUTO) 76.6 % (40.0-77.0); PLATELET COUNT (AUTO) 246 K/uL (130-400); RED BLOOD CELL COUNT(AUTO) 4.89 MIL/uL (4.50-6.20); RED CELL DISTRIBUTION WIDTH 13.4 % (11.0-15.5); WHITE BLOOD COUNT (AUTO) 12.7 K/uL (4.8-10.8)
[2024-01-06 09:21] LABS: CREATININE 1.3 mg/dL (0.5-1.3); POTASSIUM 4.1 mmol/L (3.5-5.1)
[2024-01-06 09:25] LABS: ALBUMIN 2.3 g/dL (3.5-5.0); BILIRUBIN,TOTAL 0.3 mg/dL (0.2-1.0); MAGNESIUM 1.8 mg/dL (1.80-2.40); TOTAL PROTEIN, SERUM 7.3 g/dL (6.0-8.3)
[2024-01-06 12:00] VITALS: BP 130/73; PULSE 88; RESP 18; TEMP 98.3
--- NOTE | 2024-01-06 15:44 | PN ---
INFECTIOUS DISEASE PROGRESS NOTE Date of Service: Jan 06, 2024 SUBJECTIVE: This 83 year old male patient is being seen today at bedside. No fever or chills no nausea or vomiting. Patient continues with merrem, tolerating well. He's in no respiratory distress. Awake, alert and oriented x3. she is pending to be evaluated by urologists for right hydronephrosis. WBC 0f 13.3. Family at bedside, answered questions and concerns. No over night issues are being reported at this visit. PHYSICAL EXAM EYES: Anicteric. Pupils equal and reactive. HENT: No oral thrush seen, moist Oral mucosa NECK: Supple, no JVD or thyromegaly. LUNGS: Good air entry. No rales, no rhonchi. CARDIOVASCULAR: S1, S2 regular. No murmur heard. ABDOMEN: Soft, non tender, bowel sounds present, no organomegaly CENTRAL NERVOUS SYSTEM: Awake, alert, oriented x 3. No focal deficits. SKIN: No rashes, no swelling. LYMPHATICS: No peripheral lymphadenopathy MUSCULOSKELETAL: No joint swelling, erythema or tenderness. EXTREMITIES: No cyanosis or clubbing BACK: No deformity, no pressure ulcer. GENITOURINARY: No dysuria or hematuria Vital Sign (Last 12 Hours) 01/06/24 01/06/24 01/06/24 08:00 08:00 12:00 Temp 98.8 98.8 98.2 Pulse 93 93 88 Resp 17 17 18 B/P (MAP) 125/54 125/54 130/73 Pulse Ox 96 96 95 O2 Delivery Room Air Room Air Room Air FiO2 21 21 LABS: Laboratory: Test 01/06/24 11:03 01/06/24 08:53 01/05/24 07:03 01/04/24 19:30 Range/Units Whole Blood Glucose 99 70-110 MG/DL White Blood Count 12.7 H 4.8-10.8 K/uL Red Blood Count 4.89 4.50-6.20 MIL/uL Hemoglobin 13.7 L 14.0-18.0 g/dL Hematocrit 45.2 42-54 % Mean Corpuscular Volume 92.4 79-99 fL Mean Corpuscular Hemoglobin 28.0 27.0-33.0 pg Mean Corpuscular Hemoglobin Concent 30.3 L 32.0-36.0 g/dL Red Cell Distribution Width 13.4 11.0-15.5 % Platelet Count 246 130-400 K/uL Mean Platelet Volume 9.3 7.5-10.5 fL Immature Granulocyte % (Auto) 0.9 0-1 % Neutrophils (%) (Auto) 76.6 40.0-77.0 % Lymphocytes (%) (Auto) 12.0 L 21.0-51.0 % Monocytes (%) (Auto) 8.6 3.0-13.0 % Eosinophils (%) (Auto) 1.5 0.0-8.0 % Basophils (%) (Auto) 0.4 0.0-5.0 % Neutrophils # (Auto) 9.7 H 1.8-7.7 K/uL Lymphocytes # (Auto) 1.5 1.0-4.8 K/uL Monocytes # (Auto) 1.1 H 0.1-1.0 K/uL Eosinophils # (Auto) 0.19 0.00-0.70 K/uL Basophils # (Auto) 0.05 0.00-0.20 K/uL Absolute Immature Granulocyte (auto 0.11 0-1 K/uL Nucleated Red Blood Cells 0.0 0.0-0.19 % Sodium Level 134 L 136-145 mmol/L Potassium Level 4.1 3.5-5.1 mmol/L Chloride Level 96 L 101-111 mmol/L Carbon Dioxide Level 35 H 21-32 mmol/L Blood Urea Nitrogen 16 7-18 mg/dL Creatinine 1.3 0.5-1.3 mg/dL Glomerular Filtration Rate Calc 55 >90 mL/min Random Glucose 117 H 70-105 mg/dL Total Calcium 8.9 8.5-10.1 mg/dL Magnesium Level 1.80 1.80-2.40 mg/dL Total Bilirubin 0.3 0.2-1.0 mg/dL Aspartate Amino Transf (AST/SGOT) 16 10-37 U/L Alanine Aminotransferase (ALT/SGPT) 27 12-78 U/L Alkaline Phosphatase 106 50-136 U/L Total Protein 7.3 6.0-8.3 g/dL Albumin 2.3 L 3.5-5.0 g/dL Phosphorus Level 3.3 2.5-4.9 mg/dL Thyroid Stimulating Hormone (TSH) 2.28 0.36-3.74 uIU/mL Urine Color YELLOW YELLOW Urine Appearance CLEAR CLEAR Urine pH 5.5 5.0-8.0 Urine Specific [place] 1.020 1.001-1.031 Urine Protein 20 H NEGATIVE mg/dL Urine Glucose (UA) NEGATIVE NEGATIVE mg/dL Urine Ketones NEGATIVE NEGATIVE mg/dL Urine Occult Blood +- (TRACE) H NEGATIVE Urine Nitrate NEGATIVE NEGATIVE Urine Bilirubin NEGATIVE NEGATIVE mg/dL Urine Urobilinogen 0.2 0.2-1.0 mg/dL Urine Leukocyte Esterase 500 H NEGATIVE Pretty/uL Urine RBC 2-5 H 0-1 /HPF Urine WBC 26-50 H 0-1 /HPF Urine Squamous Epithelial Cells RARE 0-2 /HPF Urine Bacteria RARE None Seen /HPF Test 01/04/24 19:11 Range/Units White Cell Morphology Comment See comments Red Blood Cell Morphology POIKILOCYTOSIS 1+ Lactic Acid Level 1.9 0.8-2.5 mmol/L Troponin I High Sensitivity 6 4-75 ng/L DIAGNOSTICS / RADIOLOGY: [ ] ASSESSMENT: This is an 83 year old male patient with current problems which include: * Urinary tract infection. * Right-sided hydronephrosis. * Polymicrobic infection. * Infection with multidrug resistant organism. * Leukocytosis. * Urinary retention. * Right renal cyst. PLAN: * Continue pain management * Start the patient on meropenem. * Follow up cultures. * Continue pain management. * Continue DVT prophylaxis. * Monitor electrolytes. * The patient will be followed up closely. This case has been discussed with my supervising physician Dr. palacios. the case has been discussed and agreed upon. MICHELLE GLOVER [facility] Jan 06, 2024 15:44
[2024-01-06 16:00] VITALS: BP 125/64; PULSE 87; RESP 18; TEMP 97.6
[2024-01-06 20:00] VITALS: BP 135/70; PULSE 82; RESP 20; TEMP 98.3
[2024-01-06 20:24] VITALS: O2SAT 95
[2024-01-07] VITALS (9 sets, daily range): BP systolic 125–155; BP diastolic 65–93; PULSE 72–101; RESP 17–20; TEMP 98–98.4; O2SAT 97
[2024-01-07 11:32] LABS: HEMATOCRIT 42.2 % (42-54); MEAN CORPUSCULAR HEMOGLOBIN 27.7 pg (27.0-33.0); MEAN CORPUSCULAR HGB CONC 30.8 g/dL (32.0-36.0); RED BLOOD CELL COUNT(AUTO) 4.69 MIL/uL (4.50-6.20); RED CELL DISTRIBUTION WIDTH 13.6 % (11.0-15.5); WHITE BLOOD COUNT (AUTO) 13.2 K/uL (4.8-10.8)
--- NOTE | 2024-01-07 11:41 | PN ---
[facility] PROGRESS NOTE Date of Service: Jan 07, 2024 Time of Service: 11:34 SUBJECTIVE: [ ] This is a 83-year-old male presents in ED with chief complaints of generalized badillo weakness for three weeks. Patient was sent by his primary PCP for IV antibiotics due to failed outpatient UTI treatment. Patient also reports having episodes of low blood sugars at home. Patient was seen and examined with Dr. Bravo patient is alert oriented x3. ID on board we will follow his recommendations. 01/06/2024. Patient is seen and examined with Dr. Bravo. Reviewed chart; patient is fully awake alert oriented x3. being followed ID started patient on Merrem IV. Blood culture so far negative urine cultures in process. 01/07/24 patient is seen and examined with Dr. Bravo earlier reviewed charge in imaging. Patient is fully awake alert and oriented x3 urology was consulted given to renal cyst and right hydronephrosis. We will start patient on Flomax patient reports no flank pain. Urine cultures pending final. REVIEW OF SYSTEMS 12-point ROS reviewed with patient. All pertinent positives mentioned above. Otherwise negative, non-pertinent, or noncontributory. PHYSICAL EXAM GENERAL APPEARANCE: The patient is awake, alert, and oriented, in no acute cardiopulmonary distress. NEUROLOGICAL: Cranial nerves II-XII grossly intact. Motor is 5/5 in bilateral upper and lower extremities proximal to distal. No sensory deficits. HEENT: Face is symmetric. Pupils are equal and reactive. Extraocular movements are intact. NECK: Supple. No JVD. No thyromegaly. No submental, submandibular, pre- /postauricular, occipital or supraclavicular lymphadenopathy. CHEST: Normal chest expansion. No Telemetry. LUNGS: Absence of any rales, rhonchi or any wheezing. CARDIOVASCULAR: Regular. S1 and S2 normal. No appreciable rubs, murmurs or gallops. ABDOMEN: Soft, nontender, and nondistended. There is no rebound, voluntary guarding, or rigidity. : Deferred. No Murry. EXTREMITIES: Non-edematous and not cyanotic. No clubbing. Good capillary refill. SKIN: No skin breakdown. Vital Signs (last 8hr) Date Time Temp Pulse Resp B/P (MAP) Pulse Ox O2 Delivery O2 Flow Rate FiO2 01/07/24 08:18 98.2 86 17 134/74 98 Room Air 01/07/24 04:00 98.1 79 20 135/77 96 Room Air LABS: Laboratory: Test 01/07/24 11:26 01/07/24 10:44 01/06/24 08:53 Range/Units White Blood Count 13.2 H 4.8-10.8 K/uL Red Blood Count 4.69 4.50-6.20 MIL/uL Hemoglobin 13.0 L 14.0-18.0 g/dL Hematocrit 42.2 42-54 % Mean Corpuscular Volume 90.0 79-99 fL Mean Corpuscular Hemoglobin 27.7 27.0-33.0 pg Mean Corpuscular Hemoglobin Concent 30.8 L 32.0-36.0 g/dL Red Cell Distribution Width 13.6 11.0-15.5 % Platelet Count 253 130-400 K/uL Mean Platelet Volume 9.1 7.5-10.5 fL Nucleated Red Blood Cells 0.0 0.0-0.19 % Whole Blood Glucose 99 70-110 MG/DL Immature Granulocyte % (Auto) 0.9 0-1 % Neutrophils (%) (Auto) 76.6 40.0-77.0 % Lymphocytes (%) (Auto) 12.0 L 21.0-51.0 % Monocytes (%) (Auto) 8.6 3.0-13.0 % Eosinophils (%) (Auto) 1.5 0.0-8.0 % Basophils (%) (Auto) 0.4 0.0-5.0 % Neutrophils # (Auto) 9.7 H 1.8-7.7 K/uL Lymphocytes # (Auto) 1.5 1.0-4.8 K/uL Monocytes # (Auto) 1.1 H 0.1-1.0 K/uL Eosinophils # (Auto) 0.19 0.00-0.70 K/uL Basophils # (Auto) 0.05 0.00-0.20 K/uL Absolute Immature Granulocyte (auto 0.11 0-1 K/uL Sodium Level 134 L 136-145 mmol/L Potassium Level 4.1 3.5-5.1 mmol/L Chloride Level 96 L 101-111 mmol/L Carbon Dioxide Level 35 H 21-32 mmol/L Blood Urea Nitrogen 16 7-18 mg/dL Creatinine 1.3 0.5-1.3 mg/dL Glomerular Filtration Rate Calc 55 >90 mL/min Random Glucose 117 H 70-105 mg/dL Total Calcium 8.9 8.5-10.1 mg/dL Magnesium Level 1.80 1.80-2.40 mg/dL Total Bilirubin 0.3 0.2-1.0 mg/dL Aspartate Amino Transf (AST/SGOT) 16 10-37 U/L Alanine Aminotransferase (ALT/SGPT) 27 12-78 U/L Alkaline Phosphatase 106 50-136 U/L Total Protein 7.3 6.0-8.3 g/dL Albumin 2.3 L 3.5-5.0 g/dL Current Medications Medications (Trade) Dose Ordered Sig/Jimmy Route PRN Reason Start Time Stop Time Status Last Admin Dose Admin Acetaminophen (TYLenol 325MG TAB) 650 mg Q6H PRN PO FEVER/MILD PAIN LEVEL 1-3 01/04/24 23:30 02/03/24 23:29 Acetaminophen (TYLenol 650MG SUPPOSITORY) 650 mg Q6H PRN RC FEVER / MILD PAIN 1-3 IF NPO 01/04/24 23:30 02/03/24 23:29 Acetaminophen/ Hydrocodone Bitart (NORco 5/325MG) 1 tab Q6H PRN PO MILD PAIN (1-3) 01/04/24 23:30 01/09/24 23:29 Cefepime HCl (MAXipime 1 GM vial) 1 gm Q12H IVPB 01/05/24 05:00 01/05/24 13:17 DC 01/05/24 06:04 1 GM Cefepime HCl (MAXipime 2 gm vial) 2 gm ONCE IVPB 01/04/24 20:00 01/04/24 23:43 DC 01/04/24 21:16 2 GM Docusate Sodium (COLace 100MG CAP) 100 mg BID PRN PO c 01/04/24 23:30 02/03/24 23:29 Enoxaparin Sodium (Lovenox) 30 mg DAILY SQ 01/05/24 09:00 02/04/24 08:59 01/07/24 09:14 30 MG Famotidine (Pepcid 20mg Tab) 20 mg Q24H PO 01/05/24 09:00 02/04/24 08:59 01/07/24 09:15 20 MG Hydralazine HCl (APRESOLine 20MG INJ) 10 mg Q2H PRN IV SBP GREATER THAN 160 01/04/24 23:30 02/03/24 23:29 Insulin Human Regular (humuLIN R 100 UNIT/ML 3ML) INSULIN SLIDING SCAL... ACHS SQ 01/05/24 07:30 02/04/24 07:29 Lactulose (Constulose 20gm/ 30ml Udcup) 20 gm Q6H PRN PO CONSTIPATION 01/04/24 23:30 02/03/24 23:29 Meropenem 1 gm/ Sodium Chloride 100 ml @ 33.333 mls/ hr Q8H IVPB 01/05/24 13:30 01/15/24 13:29 01/07/24 04:54 33.333 MLS/HR Ondansetron HCl (zoFRAN 4MG INJ) 4 mg Q6H PRN IVP NAUSEA/VOMITING 01/04/24 23:30 02/03/24 23:29 Sodium Chloride 1,000 ml @ 75 mls/hr [id number] IV 01/04/24 23:30 02/03/24 23:29 01/07/24 04:48 75 MLS/HR Temazepam (restORIL 15 MG CAP) 15 mg HS PRN PO INSOMNIA/SLEEP 01/04/24 23:30 02/03/24 23:29 DIAGNOSTICS / RADIOLOGY: [ ] ASSESSMENT: UTI failed outpatient treatment POA Leukocytosis POA Episodes of hypoglycemia POA Right-sided hydronephrosis. large softtissue mass in the right kidney measuring 8.6 x 7 cm. This may be related to complex cystic mass with neoplastic process not excluded. POA Chronic problems. BPH, high cholesterol, anxiety. 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 HS monitoring with sliding scale. urologist consulted: ABd pelvis: right hydronephrosis and right hydroureter with 7 mm renal stone in the right proximal ureter. will be started on Flomax 0.4 mg po daily first dose now. Continue to replace electrolytes as per protocol Continue DVT GI prophylaxis Further orders as per response to treatment Disposition we will wait for ID recommendations urine cultures in process. Case discussed with Dr. Bravo care plan was agreed upon ATTESTATION BY PHYSICIAN I have seen and examined the patient. I reviewed the documentation, medical decision making, and treatment plan as noted by the mid-level provider above. I agree with the findings and plan of care. BLAYNE BRAVO MD, ELIZABETH NP Jan 07, 2024 11:41
[2024-01-07 12:04] LABS: ALBUMIN 2.3 g/dL (3.5-5.0); BILIRUBIN,TOTAL 0.3 mg/dL (0.2-1.0); CREATININE 1.1 mg/dL (0.5-1.3); MAGNESIUM 1.8 mg/dL (1.80-2.40); POTASSIUM 4.7 mmol/L (3.5-5.1); TOTAL PROTEIN, SERUM 7.2 g/dL (6.0-8.3)
[2024-01-07] MEDS: tamSULOsin HCL 0.4 MG CAP.ER.24H PO ONE (13:41)
[2024-01-07] MEDS ORDERED: trAZOdone HCL 50 MG TAB PO PRN (14:30)
[2024-01-07] MEDS: DORZOLAMIDE HCL/TIMOLOL MALEAT DROPS 10 ML BOTTLE OP SCH (20:12)
[2024-01-07] MEDS: simVASTatin 20 MG TABLET PO SCH (20:12)
[2024-01-07] MEDS: LATANOPROST 2.5 ML DROPS OP SCH (20:12)
[2024-01-08] VITALS (9 sets, daily range): BP systolic 128–164; BP diastolic 70–91; PULSE 72–85; RESP 16–20; TEMP 97.8–98.6; O2SAT 98
[2024-01-08 04:15] LABS: BASOPHILS # (AUTO) 0.06 K/uL (0.00-0.20); BASOPHILS % (AUTO) 0.5 % (0.0-5.0); EOSINOPHILS # (AUTO) 0.16 K/uL (0.00-0.70); EOSINOPHILS % (AUTO) 1.3 % (0.0-8.0); HEMATOCRIT 41.9 % (42-54); IMMATURE GRANULOCYTE ABSOLUTE 0.09 K/uL (0-1); LYMPHOCYTES # (AUTO) 1.6 K/uL (1.0-4.8); LYMPHOCYTES % (AUTO) 12.8 % (21.0-51.0); MEAN CORPUSCULAR HEMOGLOBIN 27.6 pg (27.0-33.0); MEAN CORPUSCULAR HGB CONC 30.8 g/dL (32.0-36.0); MEAN CORPUSCULAR VOLUME 89.7 fL (79-99); MONOCYTES # (AUTO) 1.3 K/uL (0.1-1.0); MONOCYTES % (AUTO) 10.6 % (3.0-13.0); NEUTROPHILS # (AUTO) 9.1 K/uL (1.8-7.7); NEUTROPHILS % (AUTO) 74.1 % (40.0-77.0); PLATELET COUNT (AUTO) 219 K/uL (130-400); RED BLOOD CELL COUNT(AUTO) 4.67 MIL/uL (4.50-6.20); RED CELL DISTRIBUTION WIDTH 13.5 % (11.0-15.5); WHITE BLOOD COUNT (AUTO) 12.3 K/uL (4.8-10.8)
[2024-01-08 04:47] LABS: ALBUMIN 2.3 g/dL (3.5-5.0); BILIRUBIN,TOTAL 0.3 mg/dL (0.2-1.0); CREATININE 1.1 mg/dL (0.5-1.3); MAGNESIUM 1.8 mg/dL (1.80-2.40); POTASSIUM 3.9 mmol/L (3.5-5.1); TOTAL PROTEIN, SERUM 6.9 g/dL (6.0-8.3)
[2024-01-08] MEDS: PANTOPrazole 40 MG TAB DR PO SCH (08:15)
[2024-01-08] MEDS ORDERED: tamSULOsin HCL 0.4 MG CAP.ER.24H PO SCH (09:00)
--- NOTE | 2024-01-08 12:42 | PN ---
INFECTIOUS DISEASE PROGRESS NOTE Date of Service: Jan 08, 2024 SUBJECTIVE: Patient was seen and examined at bedside in room 404. Patient is awake, alert and oriented x3. No reports of fever, temperature is 98.2 and a WBC continues slightly elevated at 12.3. Current Urine culture growing Gram-negative rods. Patient continues on meropenem IV every 8 hours. Patient has been evaluated by Urology for a right-sided hydronephrosis and has been scheduled for a cystoscopy with right ureteral stent placement for tomorrow. Pain is being managed with [place]. We will continue to monitor patient. PHYSICAL EXAM EYES: Anicteric. Pupils equal and reactive. HENT: No oral thrush seen, moist Oral mucosa NECK: Supple, no JVD or thyromegaly. LUNGS: Good air entry. No rales, no rhonchi. CARDIOVASCULAR: S1, S2 regular. No murmur heard. ABDOMEN: Soft, non tender, bowel sounds present, no organomegaly CENTRAL NERVOUS SYSTEM: Awake, alert, oriented x 3. No focal deficits. SKIN: No rashes, no swelling. LYMPHATICS: No peripheral lymphadenopathy MUSCULOSKELETAL: No joint swelling, erythema or tenderness. EXTREMITIES: No cyanosis or clubbing BACK: No deformity, no pressure ulcer. GENITOURINARY: No dysuria or hematuria Vital Sign (Last 12 Hours) 01/08/24 01/08/24 01/08/24 04:00 08:01 11:41 Temp 98.1 98.6 98.2 Pulse 83 80 85 Resp 18 20 16 B/P (MAP) 150/83 148/89 145/76 Pulse Ox 96 100 99 O2 Delivery Room Air Room Air Room Air Intake & Output (last 24hrs)0 01/07/24 01/07/24 01/08/24 15:00 23:00 07:00 Intake Total 1300 ml Balance 1300 ml LABS: Laboratory: Test 01/08/24 11:23 01/08/24 03:53 Range/Units Whole Blood Glucose 103 70-110 MG/DL White Blood Count 12.3 H 4.8-10.8 K/uL Red Blood Count 4.67 4.50-6.20 MIL/uL Hemoglobin 12.9 L 14.0-18.0 g/dL Hematocrit 41.9 L 42-54 % Mean Corpuscular Volume 89.7 79-99 fL Mean Corpuscular Hemoglobin 27.6 27.0-33.0 pg Mean Corpuscular Hemoglobin Concent 30.8 L 32.0-36.0 g/dL Red Cell Distribution Width 13.5 11.0-15.5 % Platelet Count 219 130-400 K/uL Mean Platelet Volume 9.3 7.5-10.5 fL Immature Granulocyte % (Auto) 0.7 0-1 % Neutrophils (%) (Auto) 74.1 40.0-77.0 % Lymphocytes (%) (Auto) 12.8 L 21.0-51.0 % Monocytes (%) (Auto) 10.6 3.0-13.0 % Eosinophils (%) (Auto) 1.3 0.0-8.0 % Basophils (%) (Auto) 0.5 0.0-5.0 % Neutrophils # (Auto) 9.1 H 1.8-7.7 K/uL Lymphocytes # (Auto) 1.6 1.0-4.8 K/uL Monocytes # (Auto) 1.3 H 0.1-1.0 K/uL Eosinophils # (Auto) 0.16 0.00-0.70 K/uL Basophils # (Auto) 0.06 0.00-0.20 K/uL Absolute Immature Granulocyte (auto 0.09 0-1 K/uL Nucleated Red Blood Cells 0.0 0.0-0.19 % Sodium Level 132 L 136-145 mmol/L Potassium Level 3.9 3.5-5.1 mmol/L Chloride Level 97 L 101-111 mmol/L Carbon Dioxide Level 28 21-32 mmol/L Blood Urea Nitrogen 15 7-18 mg/dL Creatinine 1.1 0.5-1.3 mg/dL Glomerular Filtration Rate Calc 67 >90 mL/min Random Glucose 115 H 70-105 mg/dL Total Calcium 9.1 8.5-10.1 mg/dL Magnesium Level 1.80 1.80-2.40 mg/dL Total Bilirubin 0.3 0.2-1.0 mg/dL Aspartate Amino Transf (AST/SGOT) 16 10-37 U/L Alanine Aminotransferase (ALT/SGPT) 16 # 12-78 U/L Alkaline Phosphatase 98 50-136 U/L Total Protein 6.9 6.0-8.3 g/dL Albumin 2.3 L 3.5-5.0 g/dL ASSESSMENT: Urinary tract infection, failed outpatient treatment. Urinary retention with self catheterization. Right-sided hydronephrosis. Leukocytosis. Right renal cyst. PLAN: Continue on meropenem IV every 8 hours. Continue pain management. Continue GI prophylaxis. Will Follow up on the final cultures. Urology has evaluated patient and is pending a cystoscopy and ureteral stent placement. Will Monitor electrolytes. This case was reviewed and discussed with my supervising physician and the above assessment and plan was formulated and agreed upon. ATTESTATION BY PHYSICIAN I have seen and examined the patient. I reviewed the documentation, medical decision making, and treatment plan as noted by the mid-level provider above. I agree with the findings and plan of care. KEIKO MERCEDES MD, [facility] Jan 08, 2024 12:42
--- NOTE | 2024-01-08 12:58 | PN ---
[facility] PROGRESS NOTE Date of Service: Jan 08, 2024 Time of Service: 12:55 SUBJECTIVE: [ ] This is a 83-year-old male presents in ED with chief complaints of generalized badillo weakness for three weeks. Patient was sent by his primary PCP for IV antibiotics due to failed outpatient UTI treatment. Patient also reports having episodes of low blood sugars at home. Patient was seen and examined with Dr. Rich patient is alert oriented x3. ID on board we will follow his recommendations. 01/06/2024. Patient is seen and examined with Dr. Rich. Reviewed chart; patient is fully awake alert oriented x3. being followed ID started patient on Merrem IV. Blood culture so far negative urine cultures in process. 01/07/24 patient is seen and examined with Dr. Rich earlier reviewed charge in imaging. Patient is fully awake alert and oriented x3 urology was consulted given to renal cyst and right hydronephrosis. We will start patient on Flomax patient reports no flank pain. Urine cultures pending final. 01/08/2024 patient seen and examined earlier today with Attending DR Downing. Reviewed chart. Waiting for Dr. Davis urologists we will follow her recommendations. Patient continues with broad-spectrum we will continue to wait for urine cultures growing Gram-negative rods. antibiotics ID on board we will follow recommendations. Patient denied chest pain or shortness a breath on occ asionally has right lower quad flank pain. REVIEW OF SYSTEMS 12-point ROS reviewed with patient. All pertinent positives mentioned above. Otherwise negative, non-pertinent, or noncontributory. PHYSICAL EXAM GENERAL APPEARANCE: The patient is awake, alert, and oriented, in no acute cardiopulmonary distress. NEUROLOGICAL: Cranial nerves II-XII grossly intact. Motor is 5/5 in bilateral upper and lower extremities proximal to distal. No sensory deficits. HEENT: Face is symmetric. Pupils are equal and reactive. Extraocular movements are intact. NECK: Supple. No JVD. No thyromegaly. No submental, submandibular, pre- /postauricular, occipital or supraclavicular lymphadenopathy. CHEST: Normal chest expansion. No Telemetry. LUNGS: Absence of any rales, rhonchi or any wheezing. CARDIOVASCULAR: Regular. S1 and S2 normal. No appreciable rubs, murmurs or gallops. ABDOMEN: Soft, nontender, and nondistended. There is no rebound, voluntary guarding, or rigidity. : Deferred. No Murry. EXTREMITIES: Non-edematous and not cyanotic. No clubbing. Good capillary refill. SKIN: No skin breakdown. Vital Signs (last 8hr) Date Time Temp Pulse Resp B/P (MAP) Pulse Ox O2 Delivery O2 Flow Rate FiO2 01/08/24 11:41 98.2 85 16 145/76 99 Room Air 01/08/24 08:01 98.6 80 20 148/89 100 Room Air LABS: Laboratory: Test 01/08/24 11:23 01/08/24 03:53 Range/Units Whole Blood Glucose 103 70-110 MG/DL White Blood Count 12.3 H 4.8-10.8 K/uL Red Blood Count 4.67 4.50-6.20 MIL/uL Hemoglobin 12.9 L 14.0-18.0 g/dL Hematocrit 41.9 L 42-54 % Mean Corpuscular Volume 89.7 79-99 fL Mean Corpuscular Hemoglobin 27.6 27.0-33.0 pg Mean Corpuscular Hemoglobin Concent 30.8 L 32.0-36.0 g/dL Red Cell Distribution Width 13.5 11.0-15.5 % Platelet Count 219 130-400 K/uL Mean Platelet Volume 9.3 7.5-10.5 fL Immature Granulocyte % (Auto) 0.7 0-1 % Neutrophils (%) (Auto) 74.1 40.0-77.0 % Lymphocytes (%) (Auto) 12.8 L 21.0-51.0 % Monocytes (%) (Auto) 10.6 3.0-13.0 % Eosinophils (%) (Auto) 1.3 0.0-8.0 % Basophils (%) (Auto) 0.5 0.0-5.0 % Neutrophils # (Auto) 9.1 H 1.8-7.7 K/uL Lymphocytes # (Auto) 1.6 1.0-4.8 K/uL Monocytes # (Auto) 1.3 H 0.1-1.0 K/uL Eosinophils # (Auto) 0.16 0.00-0.70 K/uL Basophils # (Auto) 0.06 0.00-0.20 K/uL Absolute Immature Granulocyte (auto 0.09 0-1 K/uL Nucleated Red Blood Cells 0.0 0.0-0.19 % Sodium Level 132 L 136-145 mmol/L Potassium Level 3.9 3.5-5.1 mmol/L Chloride Level 97 L 101-111 mmol/L Carbon Dioxide Level 28 21-32 mmol/L Blood Urea Nitrogen 15 7-18 mg/dL Creatinine 1.1 0.5-1.3 mg/dL Glomerular Filtration Rate Calc 67 >90 mL/min Random Glucose 115 H 70-105 mg/dL Total Calcium 9.1 8.5-10.1 mg/dL Magnesium Level 1.80 1.80-2.40 mg/dL Total Bilirubin 0.3 0.2-1.0 mg/dL Aspartate Amino Transf (AST/SGOT) 16 10-37 U/L Alanine Aminotransferase (ALT/SGPT) 16 # 12-78 U/L Alkaline Phosphatase 98 50-136 U/L Total Protein 6.9 6.0-8.3 g/dL Albumin 2.3 L 3.5-5.0 g/dL Current Medications Medications (Trade) Dose Ordered Sig/Jimmy Route PRN Reason Start Time Stop Time Status Last Admin Dose Admin Acetaminophen (TYLenol 325MG TAB) 650 mg Q6H PRN PO FEVER/MILD PAIN LEVEL 1-3 01/04/24 23:30 02/03/24 23:29 Acetaminophen (TYLenol 650MG SUPPOSITORY) 650 mg Q6H PRN RC FEVER / MILD PAIN 1-3 IF NPO 01/04/24 23:30 02/03/24 23:29 Acetaminophen/ Hydrocodone Bitart (NORco 5/325MG) 1 tab Q6H PRN PO MILD PAIN (1-3) 01/04/24 23:30 01/09/24 23:29 Cefepime HCl (MAXipime 1 GM vial) 1 gm Q12H IVPB 01/05/24 05:00 01/05/24 13:17 DC 01/05/24 06:04 1 GM Cefepime HCl (MAXipime 2 gm vial) 2 gm ONCE IVPB 01/04/24 20:00 01/04/24 23:43 DC 01/04/24 21:16 2 GM Docusate Sodium (COLace 100MG CAP) 100 mg BID PRN PO c 01/04/24 23:30 02/03/24 23:29 Dorzolamide/ Timolol (Cosopt Eye Drops) INSTILL 1 DROP BID OP 01/07/24 21:00 02/06/24 20:59 01/08/24 08:17 1 ML Enoxaparin Sodium (Lovenox) 30 mg DAILY SQ 01/05/24 09:00 02/04/24 08:59 01/08/24 08:15 30 MG Famotidine (Pepcid 20mg Tab) 20 mg Q24H PO 01/05/24 09:00 01/07/24 14:21 DC 01/07/24 09:15 20 MG Finasteride (PROscar 5 MG TAB) 5 mg Q24H PO 01/08/24 22:30 02/07/24 22:29 Hydralazine HCl (APRESOLine 20MG INJ) 10 mg Q2H PRN IV SBP GREATER THAN 160 01/04/24 23:30 02/03/24 23:29 Insulin Human Regular (humuLIN R 100 UNIT/ML 3ML) INSULIN SLIDING SCAL... ACHS SQ 01/05/24 07:30 02/04/24 07:29 Lactulose (Constulose 20gm/ 30ml Udcup) 20 gm Q6H PRN PO CONSTIPATION 01/04/24 23:30 02/03/24 23:29 Latanoprost (Xalatan) 1 DROP HS OP 01/08/24 21:00 02/06/24 20:59 Latanoprost (Xalatan) 1 drop HS OP 01/07/24 21:00 01/08/24 07:11 DC 01/07/24 20:12 1 DROP Meropenem 1 gm/ Sodium Chloride 100 ml @ 33.333 mls/ hr Q8H IVPB 01/05/24 13:30 01/15/24 13:29 01/08/24 12:07 33.333 MLS/HR Ondansetron HCl (zoFRAN 4MG INJ) 4 mg Q6H PRN IVP NAUSEA/VOMITING 01/04/24 23:30 02/03/24 23:29 Pantoprazole Sodium (PROTonix 40MG TAB) 40 mg AM PO 01/08/24 09:00 02/07/24 08:59 01/08/24 08:15 40 MG Sertraline HCl (ZOloft 50 mg tab) 50 mg Q24H PO 01/08/24 22:30 02/07/24 22:29 Simvastatin (zoCOR) 20 mg HS PO 01/07/24 21:00 02/06/24 20:59 01/07/24 20:12 20 MG Sodium Chloride 1,000 ml @ 75 mls/hr [id number] IV 01/04/24 23:30 02/03/24 23:29 01/08/24 06:15 75 MLS/HR Tamsulosin HCl (FloMAX) 0.4 mg DAILY PO 01/08/24 09:00 01/07/24 14:21 DC Temazepam (restORIL 15 MG CAP) 15 mg HS PRN PO INSOMNIA/SLEEP 01/04/24 23:30 02/03/24 23:29 Trazodone HCl (DesyREL/OlepTRO) 50 mg HSPRN PRN PO SLEEP 01/07/24 14:30 02/06/24 14:29 DIAGNOSTICS / RADIOLOGY: [ ] ASSESSMENT: UTI failed outpatient treatment POA Leukocytosis POA Episodes of hypoglycemia POA Right-sided hydronephrosis. large softtissue mass in the right kidney measuring 8.6 x 7 cm. This may be related to complex cystic mass with neoplastic process not excluded. POA Chronic problems. BPH, high cholesterol, anxiety. Chronic problems PLAN: [ ] Admit to medical floor Consult Infectious Disease for antibiotic stewardship guidance follow-up urine cultures waiting susceptibilities growing Gram-negative rods , antibiotics changed to Merrem IV Diabetes type a.c. HS monitoring with sliding scale. urologist consulted: ABd pelvis: right hydronephrosis and right hydroureter with 7 mm renal stone in the right proximal ureter. Pending recommendations Continue Flomax 0.4 mg po daily first dose now. Continue to replace electrolytes as per protocol Continue DVT GI prophylaxis Further orders as per response to treatment Disposition we will wait for ID recommendations urine cultures in process. And urologists recommendations Case discussed with Dr. Downing care plan was agreed upon ATTESTATION BY PHYSICIAN I have seen and examined the patient. I reviewed the documentation, medical decision making, and treatment plan as noted by the mid-level provider above. I agree with the findings and plan of care. Heather Downing MD, ELIZABETH NP Jan 08, 2024 12:58
[2024-01-08] MEDS: LATANOPROST 2.5 ML DROPS OP SCH (21:00)
[2024-01-08] MEDS: SERTraline HCL 50 MG TABLET PO SCH (21:32)
[2024-01-08] MEDS: finaSTERide 5 MG TABLET PO SCH (21:33)
--- NOTE | 2024-01-08 22:13 | PN ---
DATE OF SERVICE: 01/07/2024 . INFECTIOUS DISEASE FOLLOWUP NOTE SUBJECTIVE: The patient is seen. No fever or chills. No cough. No hemoptysis. No nausea, vomiting, diarrhea or abdominal pain. Appetite is good. No depression. No suicidal ideation. The patient is tolerating antibiotic. PHYSICAL EXAMINATION: VITAL SIGNS: Temperature 97.6. EYES: No icterus. Pupils equal and reactive. HENT: No oral thrush seen. Moist oral mucosa. NECK: Supple, no JVD or thyromegaly. LUNGS: Good air entry. No rales, no rhonchi. CARDIOVASCULAR: S1, S2 regular. No murmur heard. ABDOMEN: Full, soft. Bowel sounds present. CENTRAL NERVOUS SYSTEM: Awake, alert, and oriented x 3. No focal deficits. SKIN: No rashes, no itchiness. LYMPHATIC: No peripheral lymphadenopathy. BACK: No deformity, no pressure ulcer. LABORATORY DATA: Blood culture, no growth for 2 days. ASSESSMENT: An 83-year-old male admitted with fever and chills. CURRENT PROBLEMS: Include: * Gram-negative sepsis. * Bilateral hydronephrosis. * Urinary tract infection. * History of infection with multidrug resistant organism. * Urinary retention with self catheterization. * Right renal cyst. PLAN: * Continue meropenem. * Follow up cultures. * Continue pain management. * Continue antiemetic. * Continue GI prophylaxis. * Monitor electrolytes. * The patient will follow up closely. TID: [id number] RECEIPT: [id number]
[2024-01-09] VITALS (22 sets, daily range): BP systolic 110–237; BP diastolic 62–128; PULSE 79–121; RESP 14–19; TEMP 97.2–98.4; O2SAT 98
[2024-01-09 05:48] LABS: INR 1.07 (0.85-1.15); PROTHROMBIN TIME 11.5 SEC (9.6-11.6)
[2024-01-09 05:49] LABS: PARTIAL THROMBOPLASTIN TIME 28.5 SEC (26.3-35.5)
--- NOTE | 2024-01-09 09:00 | NUR ---
LOVENOX LOVENOX NOT ADMINISTERED DUE TO UPCOMING/PENDING CYSTOSCOPY PROCEDURE. WILL CONTINUE TO MONITOR.
--- NOTE | 2024-01-09 09:45 | DS ---
Discharge Summary Hospital Course Summary: This is a 83-year-old male presents in ED with chief complaints of generalized badillo weakness for three weeks. Patient was sent by his primary PCP for IV antibiotics due to failed outpatient UTI treatment. Patient also reports having episodes of low blood sugars at home. Patient was seen and examined with Dr. Rich patient is alert oriented x3. ID on board we will follow his recommendations. 01/06/2024. Patient is seen and examined with Dr. Rich. Reviewed chart; patient is fully awake alert oriented x3. being followed ID started patient on Merrem IV. Blood culture so far negative urine cultures in process. 01/07/24 patient is seen and examined with Dr. Rich earlier reviewed charge in imaging. Patient is fully awake alert and oriented x3 urology was consulted given to renal cyst and right hydronephrosis. We will start patient on Flomax patient reports no flank pain. Urine cultures pending final. 01/08/2024 patient seen and examined earlier today with Attending DR Downing. Reviewed chart. Waiting for Dr. Davis urologists we will follow her recommendations. Patient continues with broad-spectrum we will continue to wait for urine cultures growing Gram-negative rods. antibiotics ID on board we will follow recommendations. Patient denied chest pain or shortness a breath on occasionally has right lower quad flank pain. Assessment/Plan: Discharged dx's; UTI failed outpatient treatment POA gram negative E coli Leukocytosis POA Episodes of hypoglycemia POA Right-sided hydronephrosis. large softtissue mass in the right kidney measuring 8.6 x 7 cm. This may be related to complex cystic mass with neoplastic process not excluded. POA s/p cystoscopy iwth right ureteral stent placement Chronic problems. BPH, high cholesterol, anxiety. Chronic problems PLAN: [ ] ADMISSION DATE: January 04 2024 DISCHARGE DATE: January 09, 2024 DISPOSITION: Home CONDITION: Stable WATER PROJECT MANAGER(S): Urology, Infectious Disease FOLLOW UP APPOINTMENT(S): Dr. Davis 1-2 weeks PCP 2-[address] Alessio Mathew MD PROCEDURES: cystoscopy iwth right ureteral stent placement IMAGING (S) report attached to summary : MICROBIOLOGY: report attached to summary; ACTIVITY: HOME MEDICATIONS CHANGES ON HOME MEDICATIONS NEW MEDICATIONS TEACHING: Emergency instructions: The patient was instructed to present to the nearest Emergency Department or call 911 should their symptoms return or worsen. Home Medications: Reported Medications Latanoprost (Latanoprost) 0.005 % Drops, 1 DROP OP HS, ML 0 Refills 01/05/24 Dorzolamide/Timolol/Pf (Dorzolamide-Timolol 2%-0.5%) 2 %-0.5 % Droperette, 1 DROP OP BID for 30 Days, #60 EACH 0 Refills 01/05/24 Tramadol HCl (Tramadol HCl ER) 100 Mg Cpbp.25.75, 50 MG PO BID PRN for PAIN 01/05/24 Sertraline HCl (Sertraline HCl) 50 Mg Tablet, 50 MG PO DAILY, TAB 01/05/24 Finasteride (Finasteride) 5 Mg Tablet, 5 MG PO DAILY, TAB 01/05/24 Trazodone HCl (Trazodone HCl) 50 Mg Tablet, 50 MG PO HSPRN PRN for SLEEP, TAB 01/05/24 Pantoprazole Sodium (Pantoprazole Sodium) 20 Mg Tablet.dr, 20 MG PO AM, TAB 01/05/24 Simvastatin (Simvastatin) 20 Mg Tablet, 20 MG PO HS, TAB 01/05/24 Discontinued Reported Medications Hydroxyzine HCl (Hydroxyzine HCl) 25 Mg Tablet, 25 MG PO AD PRN for ANXIETY, TAB 01/05/24 Continued Medications: Dorzolamide/Timolol/Pf (Dorzolamide-Timolol 2%-0.5%) 2 %-0.5 % Droperette 1 DROP OP BID for 30 Days, #60 EACH 0 Refills Finasteride (Finasteride) 5 Mg Tablet 5 MG PO DAILY, TAB Latanoprost (Latanoprost) 0.005 % Drops 1 DROP OP HS, ML 0 Refills Pantoprazole Sodium (Pantoprazole Sodium) 20 Mg Tablet.dr 20 MG PO AM, TAB Sertraline HCl (Sertraline HCl) 50 Mg Tablet 50 MG PO DAILY, TAB Simvastatin (Simvastatin) 20 Mg Tablet 20 MG PO HS, TAB Tramadol HCl (Tramadol HCl ER) 100 Mg Cpbp.25.75 50 MG PO BID PRN for PAIN Trazodone HCl (Trazodone HCl) 50 Mg Tablet 50 MG PO HSPRN PRN for SLEEP, TAB Time spent arranging discharge: 31-60 minutes ATTESTATION BY PHYSICIAN I have seen and examined the patient. I reviewed the documentation, medical decision making, and treatment plan as noted by the mid-level provider above. I agree with the findings and plan of care. Heather Downing MD, ELIZABETH NP Jan 09, 2024 09:45
--- NOTE | 2024-01-09 10:44 | PN ---
INFECTIOUS DISEASE PROGRESS NOTE Date of Service: Jan 09, 2024 SUBJECTIVE: Patient was seen and examined at bedside in room 404. Patient is awake, alert and oriented x3. Final urine culture results came back positive for E coli. No reports of fever, temperature is 98.1. Patient currently continues on meropenem 1 g IV every 8 hours. No reports of nausea or vomiting. Patient is scheduled for a cystoscopy with right ureteral stent placement for today and will discharge to home after the procedure. From Infectious Disease standpoint patient can be discharged to home on Keflex 500 mg p.o. t.i.d. x 10 days. PHYSICAL EXAM EYES: Anicteric. Pupils equal and reactive. HENT: No oral thrush seen, moist Oral mucosa NECK: Supple, no JVD or thyromegaly. LUNGS: Good air entry. No rales, no rhonchi. CARDIOVASCULAR: S1, S2 regular. No murmur heard. ABDOMEN: Soft, non tender, bowel sounds present, no organomegaly CENTRAL NERVOUS SYSTEM: Awake, alert, oriented x 3. No focal deficits. SKIN: No rashes, no swelling. LYMPHATICS: No peripheral lymphadenopathy MUSCULOSKELETAL: No joint swelling, erythema or tenderness. EXTREMITIES: No cyanosis or clubbing BACK: No deformity, no pressure ulcer. GENITOURINARY: No dysuria or hematuria Vital Sign (Last 12 Hours) 01/08/24 01/08/24 01/09/24 01/09/24 23:33 23:50 04:32 08:00 Temp 97.9 97.9 98.1 Pulse 72 82 79 Resp 17 18 16 B/P (MAP) 131/77 148/90 138/80 Pulse Ox 98 98 96 98 O2 Delivery Room Air* Room Air Room Air Room Air O2 Flow Rate 0 FiO2 21 21 Intake & Output (last 24hrs) 01/08/24 01/08/24 01/09/24 15:00 23:00 07:00 Intake Total 420 ml 1250 ml Balance 420 ml 1250 ml LABS: Laboratory: Test 01/09/24 05:22 01/09/24 05:20 01/08/24 03:53 Range/Units Prothrombin Time 11.5 9.6-11.6 SEC Prothromb Time International Ratio 1.07 0.85-1.15 Activated Partial Thromboplast Time 28.5 26.3-35.5 SEC Whole Blood Glucose 113 H 70-110 MG/DL White Blood Count 12.3 H 4.8-10.8 K/uL Red Blood Count 4.67 4.50-6.20 MIL/uL Hemoglobin 12.9 L 14.0-18.0 g/dL Hematocrit 41.9 L 42-54 % Mean Corpuscular Volume 89.7 79-99 fL Mean Corpuscular Hemoglobin 27.6 27.0-33.0 pg Mean Corpuscular Hemoglobin Concent 30.8 L 32.0-36.0 g/dL Red Cell Distribution Width 13.5 11.0-15.5 % Platelet Count 219 130-400 K/uL Mean Platelet Volume 9.3 7.5-10.5 fL Immature Granulocyte % (Auto) 0.7 0-1 % Neutrophils (%) (Auto) 74.1 40.0-77.0 % Lymphocytes (%) (Auto) 12.8 L 21.0-51.0 % Monocytes (%) (Auto) 10.6 3.0-13.0 % Eosinophils (%) (Auto) 1.3 0.0-8.0 % Basophils (%) (Auto) 0.5 0.0-5.0 % Neutrophils # (Auto) 9.1 H 1.8-7.7 K/uL Lymphocytes # (Auto) 1.6 1.0-4.8 K/uL Monocytes # (Auto) 1.3 H 0.1-1.0 K/uL Eosinophils # (Auto) 0.16 0.00-0.70 K/uL Basophils # (Auto) 0.06 0.00-0.20 K/uL Absolute Immature Granulocyte (auto 0.09 0-1 K/uL Nucleated Red Blood Cells 0.0 0.0-0.19 % Sodium Level 132 L 136-145 mmol/L Potassium Level 3.9 3.5-5.1 mmol/L Chloride Level 97 L 101-111 mmol/L Carbon Dioxide Level 28 21-32 mmol/L Blood Urea Nitrogen 15 7-18 mg/dL Creatinine 1.1 0.5-1.3 mg/dL Glomerular Filtration Rate Calc 67 >90 mL/min Random Glucose 115 H 70-105 mg/dL Total Calcium 9.1 8.5-10.1 mg/dL Magnesium Level 1.80 1.80-2.40 mg/dL Total Bilirubin 0.3 0.2-1.0 mg/dL Aspartate Amino Transf (AST/SGOT) 16 10-37 U/L Alanine Aminotransferase (ALT/SGPT) 16 # 12-78 U/L Alkaline Phosphatase 98 50-136 U/L Total Protein 6.9 6.0-8.3 g/dL Albumin 2.3 L 3.5-5.0 g/dL ASSESSMENT: Urinary tract infection with E coli. Urinary retention with self catheterization. Right-sided hydronephrosis. Leukocytosis. Right renal cyst. PLAN: Pending a cystoscopy with right ureteral stent placement for today. Patient will be discharged to home after the procedure. From Infectious Disease standpoint patient can be discharged on Keflex 500 mg p.o. t.i.d. x 10 days. This case was reviewed and discussed with my supervising physician and the above assessment and plan was formulated and agreed upon. ATTESTATION BY PHYSICIAN I have seen and examined the patient. I reviewed the documentation, medical decision making, and treatment plan as noted by the mid-level provider above. I agree with the findings and plan of care. KEIKO MERCEDES MD, [facility] Jan 09, 2024 10:44
--- NOTE | 2024-01-09 11:25 | NUR ---
CYSTOSCOPY PATIENT LEFT VIA STRETCHER ACCOMPANIED BY FOR PENDING CYSTOSCOPY WITH STENT PLACEMENT. NO S/S OF DISTRESS NOTED.
[2024-01-09] MEDS ORDERED: MIDAZOLAM HCL 1 MG/ML 2ML VIAL ONE ×2 (11:58→12:40)
[2024-01-09] MEDS ORDERED: proPOFol 10 MG/ML 20ML VIAL IV ONE (12:41)
[2024-01-09] MEDS ORDERED: SUCCINYLCHOLINE CHLORIDE 20 MG/ML 10 ML VIAL ONE (12:41)
[2024-01-09] MEDS ORDERED: rocuRONium bROMide 10MG/1ML 5ML VL ONE (12:41)
[2024-01-09] MEDS ORDERED: FENTanyl CITRate PF 50 MCG/1 ML 2ML VIAL ONE (12:46)
[2024-01-09] MEDS: LAbetaLOL 20MG SYG IV ONE ×3 (13:38→14:51)
[2024-01-09] MEDS: SUGAMMADEX SODIUM 200 MG/2 ML VIAL IV ONE (14:50)
[2024-01-09] MEDS ORDERED: IOHEXOL-350 50ML VIAL IV ONE (15:19)
--- NOTE | 2024-01-09 15:34 | HMCIMG ---
UROGRAPHY RETROGRADE REASON: RETROGRADE PYELOGRAM, STENT PLCMNT COMPARISON: None TECHNIQUE: 5 surgical spot views are obtained. These document to retrograde myelogram with stent placement. Fluoroscopy time is 1.1 minute. IMPRESSION: 1. Documentation of retrograde right ureterogram with stent placement.
[2024-01-09] MEDS: PHENAZOpyridine HCL 200 MG TAB 200 MG TABLET PO ONE (16:02)
--- NOTE | 2024-01-09 16:12 | PN ---
[facility] PROGRESS NOTE Date of Service: Jan 09, 2024 Time of Service: 16:06 SUBJECTIVE: [ ] This is a 83-year-old male presents in ED with chief complaints of generalized badillo weakness for three weeks. Patient was sent by his primary PCP for IV antibiotics due to failed outpatient UTI treatment. Patient also reports having episodes of low blood sugars at home. Patient was seen and examined with Dr. Rich patient is alert oriented x3. ID on board we will follow his recommendations. 01/06/2024. Patient is seen and examined with Dr. Rich. Reviewed chart; patient is fully awake alert oriented x3. being followed ID started patient on Merrem IV. Blood culture so far negative urine cultures in process. 01/07/24 patient is seen and examined with Dr. Rich earlier reviewed charge in imaging. Patient is fully awake alert and oriented x3 urology was consulted given to renal cyst and right hydronephrosis. We will start patient on Flomax patient reports no flank pain. Urine cultures pending final. 01/08/2024 patient seen and examined earlier today with Attending DR Downing. Reviewed chart. Waiting for Dr. Davis urologists we will follow her recommendations. Patient continues with broad-spectrum we will continue to wait for urine cultures growing Gram-negative rods. antibiotics ID on board we will follow recommendations. Patient denied chest pain or shortness a breath on occ asionally has right lower quad flank pain. 01/09/24 patient was seen earlier patient is scheduled for a cysto with stent placement. ID on board deescalate IV antibiotics to p.o. Gram-negative E coli in urine. 1600 postprocedure patient has Murry catheter to gravity. As per family patient was told he was going to stay until 01/11/[address] Davis we will monitor patient closely. And follow urologists postprocedure recommendations. REVIEW OF SYSTEMS 12-point ROS reviewed with patient. All pertinent positives mentioned above. Otherwise negative, non-pertinent, or noncontributory. PHYSICAL EXAM GENERAL APPEARANCE: The patient is awake, alert, and oriented, in no acute cardiopulmonary distress. NEUROLOGICAL: Cranial nerves II-XII grossly intact. Motor is 5/5 in bilateral upper and lower extremities proximal to distal. No sensory deficits. HEENT: Face is symmetric. Pupils are equal and reactive. Extraocular movements are intact. NECK: Supple. No JVD. No thyromegaly. No submental, submandibular, pre- /postauricular, occipital or supraclavicular lymphadenopathy. CHEST: Normal chest expansion. No Telemetry. LUNGS: Absence of any rales, rhonchi or any wheezing. CARDIOVASCULAR: Regular. S1 and S2 normal. No appreciable rubs, murmurs or gallops. ABDOMEN: Soft, nontender, and nondistended. There is no rebound, voluntary guarding, or rigidity. : Deferred. No Murry. EXTREMITIES: Non-edematous and not cyanotic. No clubbing. Good capillary refill. SKIN: No skin breakdown. Vital Signs (last 8hr) Date Time Temp Pulse Resp B/P (MAP) Pulse Ox O2 Delivery O2 Flow Rate FiO2 01/09/24 11:45 97.2 88 16 168/93 98 Room Air 01/09/24 11:10 98.4 84 16 148/80 96 Room Air 21 LABS: Laboratory: Test 01/09/24 11:13 01/09/24 05:22 01/08/24 03:53 Range/Units Whole Blood Glucose 96 70-110 MG/DL Prothrombin Time 11.5 9.6-11.6 SEC Prothromb Time International Ratio 1.07 0.85-1.15 Activated Partial Thromboplast Time 28.5 26.3-35.5 SEC White Blood Count 12.3 H 4.8-10.8 K/uL Red Blood Count 4.67 4.50-6.20 MIL/uL Hemoglobin 12.9 L 14.0-18.0 g/dL Hematocrit 41.9 L 42-54 % Mean Corpuscular Volume 89.7 79-99 fL Mean Corpuscular Hemoglobin 27.6 27.0-33.0 pg Mean Corpuscular Hemoglobin Concent 30.8 L 32.0-36.0 g/dL Red Cell Distribution Width 13.5 11.0-15.5 % Platelet Count 219 130-400 K/uL Mean Platelet Volume 9.3 7.5-10.5 fL Immature Granulocyte % (Auto) 0.7 0-1 % Neutrophils (%) (Auto) 74.1 40.0-77.0 % Lymphocytes (%) (Auto) 12.8 L 21.0-51.0 % Monocytes (%) (Auto) 10.6 3.0-13.0 % Eosinophils (%) (Auto) 1.3 0.0-8.0 % Basophils (%) (Auto) 0.5 0.0-5.0 % Neutrophils # (Auto) 9.1 H 1.8-7.7 K/uL Lymphocytes # (Auto) 1.6 1.0-4.8 K/uL Monocytes # (Auto) 1.3 H 0.1-1.0 K/uL Eosinophils # (Auto) 0.16 0.00-0.70 K/uL Basophils # (Auto) 0.06 0.00-0.20 K/uL Absolute Immature Granulocyte (auto 0.09 0-1 K/uL Nucleated Red Blood Cells 0.0 0.0-0.19 % Sodium Level 132 L 136-145 mmol/L Potassium Level 3.9 3.5-5.1 mmol/L Chloride Level 97 L 101-111 mmol/L Carbon Dioxide Level 28 21-32 mmol/L Blood Urea Nitrogen 15 7-18 mg/dL Creatinine 1.1 0.5-1.3 mg/dL Glomerular Filtration Rate Calc 67 >90 mL/min Random Glucose 115 H 70-105 mg/dL Total Calcium 9.1 8.5-10.1 mg/dL Magnesium Level 1.80 1.80-2.40 mg/dL Total Bilirubin 0.3 0.2-1.0 mg/dL Aspartate Amino Transf (AST/SGOT) 16 10-37 U/L Alanine Aminotransferase (ALT/SGPT) 16 # 12-78 U/L Alkaline Phosphatase 98 50-136 U/L Total Protein 6.9 6.0-8.3 g/dL Albumin 2.3 L 3.5-5.0 g/dL Current Medications Medications (Trade) Dose Ordered Sig/Jimmy Route PRN Reason Start Time Stop Time Status Last Admin Dose Admin Acetaminophen (TYLenol 325MG TAB) 650 mg Q6H PRN PO FEVER/MILD PAIN LEVEL 1-3 01/04/24 23:30 02/03/24 23:29 Acetaminophen (TYLenol 650MG SUPPOSITORY) 650 mg Q6H PRN RC FEVER / MILD PAIN 1-3 IF NPO 01/04/24 23:30 02/03/24 23:29 Acetaminophen/ Hydrocodone Bitart (NORco 5/325MG) 1 tab Q6H PRN PO MILD PAIN (1-3) 01/04/24 23:30 01/09/24 23:29 Cefepime HCl (MAXipime 1 GM vial) 1 gm Q12H IVPB 01/05/24 05:00 01/05/24 13:17 DC 01/05/24 06:04 1 GM Cefepime HCl (MAXipime 2 gm vial) 2 gm ONCE IVPB 01/04/24 20:00 01/04/24 23:43 DC 01/04/24 21:16 2 GM Docusate Sodium (COLace 100MG CAP) 100 mg BID PRN PO c 01/04/24 23:30 02/03/24 23:29 Dorzolamide/ Timolol (Cosopt Eye Drops) INSTILL 1 DROP BID OP 01/07/24 21:00 02/06/24 20:59 01/09/24 10:08 1 ML Enoxaparin Sodium (Lovenox) 30 mg DAILY SQ 01/05/24 09:00 02/04/24 08:59 01/08/24 08:15 30 MG Famotidine (Pepcid 20mg Tab) 20 mg Q24H PO 01/05/24 09:00 01/07/24 14:21 DC 01/07/24 09:15 20 MG Finasteride (PROscar 5 MG TAB) 5 mg Q24H PO 01/08/24 22:30 02/07/24 22:29 01/08/24 21:33 5 MG Hydralazine HCl (APRESOLine 20MG INJ) 10 mg Q2H PRN IV SBP GREATER THAN 160 01/04/24 23:30 02/03/24 23:29 Insulin Human Regular (humuLIN R 100 UNIT/ML 3ML) INSULIN SLIDING SCAL... ACHS SQ 01/05/24 07:30 02/04/24 07:29 Lactulose (Constulose 20gm/ 30ml Udcup) 20 gm Q6H PRN PO CONSTIPATION 01/04/24 23:30 02/03/24 23:29 Latanoprost (Xalatan) 1 DROP HS OP 01/08/24 21:00 02/06/24 20:59 Latanoprost (Xalatan) 1 drop HS OP 01/07/24 21:00 01/08/24 07:11 DC 01/08/24 21:36 1 DROP Meropenem 1 gm/ Sodium Chloride 100 ml @ 33.333 mls/ hr Q8H IVPB 01/05/24 13:30 01/15/24 13:29 01/09/24 16:02 33.333 MLS/HR Ondansetron HCl (zoFRAN 4MG INJ) 4 mg Q6H PRN IVP NAUSEA/VOMITING 01/04/24 23:30 02/03/24 23:29 Pantoprazole Sodium (PROTonix 40MG TAB) 40 mg AM PO 01/08/24 09:00 02/07/24 08:59 01/08/24 08:15 40 MG Sertraline HCl (ZOloft 50 mg tab) 50 mg Q24H PO 01/08/24 22:30 02/07/24 22:29 01/08/24 21:32 50 MG Simvastatin (zoCOR) 20 mg HS PO 01/07/24 21:00 02/06/24 20:59 01/08/24 21:33 20 MG Sodium Chloride 1,000 ml @ 75 mls/hr [id number] IV 01/04/24 23:30 02/03/24 23:29 01/08/24 06:15 75 MLS/HR Tamsulosin HCl (FloMAX) 0.4 mg DAILY PO 01/08/24 09:00 01/07/24 14:21 DC Temazepam (restORIL 15 MG CAP) 15 mg HS PRN PO INSOMNIA/SLEEP 01/04/24 23:30 02/03/24 23:29 Trazodone HCl (DesyREL/OlepTRO) 50 mg HSPRN PRN PO SLEEP 01/07/24 14:30 02/06/24 14:29 DIAGNOSTICS / RADIOLOGY: [ ] Assessment UTI failed outpatient treatment POA gram negative E coli Leukocytosis POA Episodes of hypoglycemia POA Right-sided hydronephrosis. large softtissue mass in the right kidney measuring 8.6 x 7 cm. This may be related to complex cystic mass with neoplastic process not excluded. POA s/p cystoscopy iwth right ureteral stent placement Chronic problems. BPH, high cholesterol, anxiety. Chronic problems PLAN: [ ] Admit to medical floor Consult Infectious Disease for antibiotic stewardship guidance follow-up urine cultures waiting susceptibilities growing Gram-negative rods ,Ecoli antibiotics changed to Merrem IV cephalexin 500 mg po TID for 10 days. Diabetes type a.c. HS monitoring with sliding scale. urologist consulted: ABd pelvis: right hydronephrosis and right hydroureter with 7 mm renal stone in the right proximal ureter. s./p cystotomy with stent placement: with Murry catheter Continue Flomax 0.4 mg po daily Continue to replace electrolytes as per protocol Continue DVT GI prophylaxis Further orders as per response to treatment Disposition home until cleared by DR Ryan Zendejas. Case discussed with Dr. Downing care plan was agreed upon ATTESTATION BY PHYSICIAN I have seen and examined the patient. I reviewed the documentation, medical decision making, and treatment plan as noted by the mid-level provider above. I agree with the findings and plan of care. Heather Downing MD, ELIZABETH NP Jan 09, 2024 16:12
--- NOTE | 2024-01-09 16:25 | NUR ---
DISCHARGE CONTACTED DR. MURO OFFICE FOR CLARIFICATION ON DISCHARGE DATE. SPOKE WITH DR. HSIEH WHO OK'D FOR PATIENT TO BE DISCHARGED AFTER DINNER WITH [facility] IN PLACE. PROVIDED LEG BAG AND EDUCATED PATIENT ON EMPTYING BAG PRN. PATIENT TO FOLLOW UP NEXT WEEK WITH DR. HSIEH POST HOSPITAL DISCHARGE. PATIENT AND FAMILY VOICED UNDERSTANDING.
--- NOTE | 2024-01-09 16:42 | DS ---
Discharge Summary Hospital Course Summary: This is a 83-year-old male presents in ED with chief complaints of generalized badillo weakness for three weeks. Patient was sent by his primary PCP for IV antibiotics due to failed outpatient UTI treatment. Patient also reports having episodes of low blood sugars at home. Course of stay patient was followed by infectious disease patient was on broad- spectrum antibiotics then changed to p.o.. cephalexin 500 t.i.d. for 10 more da ys per ID urine cultures Gram-negative E coli. Given to given to renal cyst and right hydronephrosis. Urology Dr. Hsieh was consulted patient underwent cysto with stent placement and Marroquin catheter we will follow-up with Dr. Hsieh in one-week. Patient was instructed on Marroquin catheter patient is clinically stable for discharge. Procedure(s): REASON: RETROGRADE PYELOGRAM, STENT PLCMNT ORDERING PHYSICIAN: EDUIN HSIEH MD PROCEDURE: URORETRO - UROGRAPHY RETROGRADE UROGRAPHY RETROGRADE REASON: RETROGRADE PYELOGRAM, STENT PLCMNT COMPARISON: None TECHNIQUE: 5 surgical spot views are obtained. These document to retrograde myelogram with stent placement. Fluoroscopy time is 1.1 minute. IMPRESSION: 1. Documentation of retrograde right ureterogram with stent placement. REASON: low abd discomfort ORDERING PHYSICIAN: RITCHIE DUCKWORTH PROCEDURE: ABD PEL WO - CT ABDOMEN/PELVIS W/O CONTRAST CT ABDOMEN/PELVIS W/O CONTRAST HISTORY: Lower abdominal discomfort COMPARISON: 11/27/2019 TECHNIQUE: Multiple sequential axial images of the abdomen and pelvis were obtained from the dome of the diaphragm through symphysis pubis. Patient was not given contrast through intravenous route. Oral contrast was not given. FINDINGS: No pleural effusion is seen bilaterally. Mild right middle lobe pulmonary infiltrates are seen. Degenerative changes of the thoracolumbar spine are present. The heart is not enlarged. Liver is enlarged with fatty changes measuring 19 cm. The liver, spleen, adrenal glands and pancreas are unremarkable. No hydronephrosis is seen on the left. Bilateral renal cysts are seen. There is right hydronephrosis and right hydroureter with 7 mm renal stone in the right proximal ureter. There appears to be large soft tissue mass in the right kidney measuring 8.6 x 7 cm. This may be related to complex cystic mass with neoplastic process not excluded. Contrast-enhanced CT is recommended for complete evaluation. There may be blood product versus soft tissue material there is diverticulosis. Noted in the right renal pelvis and proximal ureter. Tiny right renal pelvic stone is also seen. Fecal material is seen in the colon. There are normal size retroperitoneal and mesenteric lymph nodes. No ascites is seen. Atherosclerotic changes are present. Pelvic sidewalls are symmetric bilaterally. Bladder is well distended without wall thickening. IMPRESSION: 1. There is right hydronephrosis and right hydroureter with 7 mm renal stone in the right proximal ureter. There appears to be large soft tissue mass in the right kidney measuring 8.6 x 7 cm. This may be related to complex cystic mass with neoplastic process not excluded. Contrast-enhanced CT is recommended for complete evaluation. There may be blood product versus soft tissue material noted in the right renal pelvis and proximal ureter. Tiny right renal pelvic stone is also seen. RUN DATE: 01/09/24 [facility] [address] 1 RUN TIME: [id number] [place] [address] Department of Laboratories CLIA # [id number] Director Of Intelligence: Hitesh Mota DO Specimen Report PATIENT: ANG BARRIOS ACCT: [id number] LOC: [facility] U: [id number] AGE/SX: 83/M ROOM: [facility] RE01/04/[address]: BLAYNE BRAVO MD : 1940 BED: 1 DIS: STATUS: ADM IN TLOC: SPEC: [id number] KAMALA: 01/04/24 STATUS: COMP REQ: [id number] RECD: 01/04/[address]: ROSE MARIE ORTA SOURCE: [facility] [place]: 01/06/[address]: ALLY SPDESC: NAYELY MARQUEZ MD ORDERED: AERO ID & SENS Procedure Result Martin Date-Time AEROBIC ID & SENSITIVITIES Final 01/09/24-816 MRL COLONY DESCRIPTION: DAY 1: COLONY COUNT: 10,000 - 20,000 CFU/ML GRAM NEGATIVE RODS IDENTIFICATION AND SENSITIVITY TO FOLLOW ESCHERICHIA COLI E COLI M.I.C. RX --------- ---- AMPICILLIN >16 R AZTREONAM <=4 S CEFAZOLIN <=2 S CEFTAZIDIME/AVIBACTAM <=8 S CIPROFLOXACIN >2 R GENTAMICIN >8 R LEVOFLOXACIN >4 R NITROFURANTOIN <=32 S TOBRAMYCIN 8 R MEROPENEM <=1 S PIPERACILLIN/TAZOBACTAM <=8 S TRIMETHOPRIM/SUFLAMETHOXAZOLE <=2/38 S @ [facility] Test Performed at: [facility] [address], [place], [place] Medical Spot Facer: Abner Proctor D.O. END OF REPORT Assessment/Plan: discharged UTI failed outpatient treatment POA gram negative E coli Leukocytosis POA Episodes of hypoglycemia POA Right-sided hydronephrosis. large softt issue mass in the right kidney measuring 8.6 x 7 cm. This may be related to complex cystic mass with neoplastic process not excluded. POA s/p cystoscopy iwth right ureteral stent placement with Marroquin catheter Chronic problems. BPH, high cholesterol, anxiety. PLAN: [ ] ADMISSION DATE: January 04 2024 DISCHARGE DATE: January 09, 2024 DISPOSITION: Home CONDITION: Stable CIDER PRESS OPERATOR(S): Urology, Infectious Disease FOLLOW UP APPOINTMENT(S): Dr. Hsieh 1-2 weeks PCP 2-[address] Alessio Mathew MD PROCEDURES: cystoscopy iwth right ureteral stent placement and marroquin cath. IMAGING (S) report attached to summary : abd pelvis MICROBIOLOGY: report attached to summary; urine culture ACTIVITY: ab monica HOME MEDICATIONS remain the same CHANGES ON HOME MEDICATIONS none NEW MEDICATIONS cephalexin 500 gm TID for 10 days TEACHING: Marroquin Catheter: leg bag. Emergency instructions: The patient was instructed to present to the nearest Emergency Department or call 911 should their symptoms return or worsen. Home Medications: Reported Medications Latanoprost (Latanoprost) 0.005 % Drops, 1 DROP OP HS, ML 0 Refills 01/05/24 Dorzolamide/Timolol/Pf (Dorzolamide-Timolol 2%-0.5%) 2 %-0.5 % Droperette, 1 DROP OP BID for 30 Days, #60 EACH 0 Refills 01/05/24 Tramadol HCl (Tramadol HCl ER) 100 Mg Cpbp.25.75, 50 MG PO BID PRN for PAIN 01/05/24 Sertraline HCl (Sertraline HCl) 50 Mg Tablet, 50 MG PO DAILY, TAB 01/05/24 Finasteride (Finasteride) 5 Mg Tablet, 5 MG PO DAILY, TAB 01/05/24 Trazodone HCl (Trazodone HCl) 50 Mg Tablet, 50 MG PO HSPRN PRN for SLEEP, TAB 01/05/24 Pantoprazole Sodium (Pantoprazole Sodium) 20 Mg Tablet.dr, 20 MG PO AM, TAB 01/05/24 Simvastatin (Simvastatin) 20 Mg Tablet, 20 MG PO HS, TAB 01/05/24 Discontinued Reported Medications Hydroxyzine HCl (Hydroxyzine HCl) 25 Mg Tablet, 25 MG PO AD PRN for ANXIETY, TAB 01/05/24 Continued Medications: Dorzolamide/Timolol/Pf (Dorzolamide-Timolol 2%-0.5%) 2 %-0.5 % Droperette 1 DROP OP BID for 30 Days, #60 EACH 0 Refills Finasteride (Finasteride) 5 Mg Tablet 5 MG PO DAILY, TAB Latanoprost (Latanoprost) 0.005 % Drops 1 DROP OP HS, ML 0 Refills Pantoprazole Sodium (Pantoprazole Sodium) 20 Mg Tablet.dr 20 MG PO AM, TAB Sertraline HCl (Sertraline HCl) 50 Mg Tablet 50 MG PO DAILY, TAB Simvastatin (Simvastatin) 20 Mg Tablet 20 MG PO HS, TAB Tramadol HCl (Tramadol HCl ER) 100 Mg Cpbp.25.75 50 MG PO BID PRN for PAIN Trazodone HCl (Trazodone HCl) 50 Mg Tablet 50 MG PO HSPRN PRN for SLEEP, TAB Time spent arranging discharge: 31-60 minutes ATTESTATION BY PHYSICIAN I have seen and examined the patient. I reviewed the documentation, medical decision making, and treatment plan as noted by the mid-level provider above. I agree with the findings and plan of care. Heather Downing MD, ELIZABETH NP Jan 09, 2024 16:42
--- NOTE | 2024-01-09 17:54 | NUR ---
DISCHARGE ORDERS FOR DISCHARGE OBTAINED FOR PATIENT TO BE DISCHARGED HOME. DISCHARGE INSTRUCTIONS AND DOCUMENTATION GIVEN TO PATIENT AND AT BEDSIDE. RX GIVEN TO DAUGHTER FOR ANTIBIOTIC TO BE FILLED. VOICED UNDERSTANDING. IV DISCONTINUED, CATHETER INTACT, NO S/S OF INFECTION NOTED TO SITE. PATIENT TOLERATED WELL. CLARK IN PLACE. DRAINING PURULENT THICK URINE. PROVIDED PATIENT WITH EXTRA LEG BAG AND CLARK BAG FOR USAGE UNTIL APPOINTMENT WITH DR. HSIEH. VOICED UNDERSTANDING. NO QUESTIONS AT THIS TIME. PATIENT LEFT VIA WHEELCHAIR, ACCOMPANIED BY FAMILY. NO S/S OF DISTRESS NOTED.
--- NOTE | 2024-01-17 23:54 | OP ---
DATE OF PROCEDURE: 01/09/2024 PREOPERATIVE DIAGNOSES: Right ureteropelvic junction stone, right hydronephrosis, neurogenic bladder, acute cystitis, and obesity (BMI 31.3). POSTOPERATIVE DIAGNOSES: Right ureteropelvic junction stone, right hydronephrosis, neurogenic bladder, acute cystitis, and obesity (BMI 31.3). PROCEDURES PERFORMED: Cystourethroscopy, right retrograde pyelogram, right ureteral stent placement (26 cm x 6-Bulgarian Polaris stent). ANESTHESIA: General endotracheal anesthesia. SURGEON: Jerilyn Davis MD FINDINGS: Purulent efflux from right ureteral orifice, visible stone at the ureteropelvic junction. PREOPERATIVE INDICATIONS: This is an 83-year-old gentleman well known to me. The patient has a longstanding history of a neurogenic bladder and performs clean intermittent catheterization several times daily. The reports to me that the patient recently has had more difficulty inserting his intermittent catheterizations and he has also been told by his primary care doctor that he has a urinary tract infection. He did not respond to outpatient oral antibiotics and was referred to a doctor in [place], I believe, . In the interim, the patient presented to [facility] with fevers and chills; and he underwent CT scanning on 01/05/2024. This revealed a 7 mm stone in the right proximal ureter, actually additionally they found a cystic mass also of the right kidney and this was a complex cyst. The patient did have an ultrasound as an outpatient by his primary care doctor on 04/28/2023. This ultrasound revealed bilateral renal cysts with this cystic mass present as well, but was dictated to be a cyst and not a solid lesion. Preoperatively, the patient's creatinine was 1.1 with a GFR 67. He is currently on meropenem and seems to be responding. He additionally had a PSA as an outpatient in 05/2023, which was less than 0.1 and he has had E. coli urinary tract infections in the past sensitive to Augmentin, Bactrim, Zosyn, cefuroxime, ceftriaxone and cefepime. DESCRIPTION OF PROCEDURE: The patient was brought to the operating room and placed in the supine position. Following adequate general endotracheal anesthesia, he was sterilely draped and prepped in the usual fashion in the dorsal lithotomy position. Compression stockings had been placed and the patient has been on scheduled meropenem. Ballet Teacher imaging revealed a visible stone in the location of the proximal ureter/ureteropelvic junction. Following this, a cystoscopic evaluation was performed. 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 A 22-Bulgarian cystoscopic sheath with 30-degree angle lens in place was positioned per urethra then and completely passed into the patient's bladder. The patient had significant debris in the bladder and this was copiously irrigated using Ellik irrigators. Following this, the right ureteral orifice was identified and a 5-Bulgarian open-ended catheter was positioned into the orifice. Contrast was injected in retrograde fashion revealing that this calcification was in fact the stone that was identified on the CT scan. A 0.038 mm guidewire was then passed through the lumen of the 5-Bulgarian open-ended catheter and negotiated around the stone. A brisk efflux of purulent material was noted exuding from the right ureteral orifice. A 26 cm x 6-Bulgarian double-J ureteral stent was then coaxially placed over the indwelling guidewire and advanced into the patient's right renal pelvis. Continued copious purulent efflux was noted. This was irrigated multiple times and then a Murry catheter was inserted at the end of the procedure. He was transported to the recovery room in stable condition. The plan will be for the patient to return to the hospitalist service and maintain indwelling Murry catheter for two reasons, #1, he is infected and not able to really do a good job emptying his bladder with his catheters as he is having some difficulty with advancing the catheter into the bladder and secondly, his urethra was dilated. The patient will be instructed to increase his fluids upon discharge and to go home on an oral antibiotic that is sensitive to his current urine culture. He is to follow up in the office in 10-14 days. At that time, we will remove his catheter and we will discuss treatment with most likely shockwave lithotripsy once his infection has been cleared and he has a negative urine culture. At that setting, while he is under anesthetic, I will remove his stent. Additionally, at some point, he needs a contrast study to confirm the cyst of his right lower pole. All of this was discussed with the patient's . TID: [id number] RECEIPT: [id number]
== END 2024-01-09 18:00 | disposition home or self-care (01) | DRG 854 ==
LOC: EDH 18:14 → EDHIP 21:42 → 4AH 01-05 18:20
PROVIDERS: ADMIT Internal Medicine; ATTEND Internal Medicine
PROC: BT1D1ZZ Fluoroscopy of Right Kidney, Ureter and Bladder using Low Osmolar Contrast (ICD-10-PCS; 2024-01-09)
PROC: 0T768DZ Dilation of Right Ureter with Intraluminal Device, Via Natural or Artificial Opening Endoscopic (ICD-10-PCS; principal; 2024-01-09 12:39)
DX: A41.50 Gram-negative sepsis, unspecified (principal); E87.1 Hypo-osmolality and hyponatremia; N13.6 Pyonephrosis; N30.00 Acute cystitis without hematuria; Z16.24 Resistance to multiple antibiotics; N17.9 Acute kidney failure, unspecified; E16.2 Hypoglycemia, unspecified; E87.8 Other disorders of electrolyte and fluid balance, not elsewhere classified; N40.1 Benign prostatic hyperplasia with lower urinary tract symptoms; E78.00 Pure hypercholesterolemia, unspecified; E86.0 Dehydration; E66.9 Obesity, unspecified; F41.9 Anxiety disorder, unspecified; B96.20 Unspecified Escherichia coli [E. coli] as the cause of diseases classified elsewhere; K59.00 Constipation, unspecified; I10 Essential (primary) hypertension; N31.9 Neuromuscular dysfunction of bladder, unspecified; Z68.31 Body mass index [BMI] 31.0-31.9, adult
CPT/HCPCS: 36415; 71045; 74176; 74420; 80048; 80053; 81001; 82948; 83605; 83735; 84100; 84443; 84484; 85025; 85027; 85610; 85730; 87040; 87086; 87186; 93005; 96365; A4344; C1758; C2617; G0378; J0330; J0692; J1650; J2185; J2250; J2704; J3010; J3490; J7030; J7120; Q9967; A4216; A4222; A4223; A4358; A4510; A4600

== ENCOUNTER 2024-01-31 06:48 | Day surgery (SDC) | payer MEDICARE ==
--- NOTE | 2024-01-29 11:10 | EKG ---
[facility] Test Date: 2024-01-29 Test Time: 12:01:20 Pat Name: ANG BARRIOS Department: [facility] Room: Gender: M Baler Operator: [id number] : 1940 Requested By: EDUIN HSIEH Order Number: [id number] Reading MD: Carin Cameron Measurements Intervals [place] Rate: 88 P: 55 SD: 183 QRS: 12 QRSD: 95 T: 57 QT: 375 QTc: 455 Interpretive Statements Sinus rhythm Compared to ECG 01/04/2024 19:47:06 No significant changes Electronically Signed On 01-29-2024 13:17:06 [employer] by Carin Cameron Please click the below link to view image of tracing.
[2024-01-29 11:26] LABS: CREATININE 1.2 mg/dL (0.5-1.3); POTASSIUM 3.4 mmol/L (3.5-5.1)
[2024-01-29 11:27] VITALS: BP 131/67; PULSE 72; RESP 19; TEMP 98.1
[2024-01-29 11:30] LABS: BASOPHILS # (AUTO) 0.04 K/uL (0.00-0.20); BASOPHILS % (AUTO) 0.6 % (0.0-5.0); EOSINOPHILS # (AUTO) 0.31 K/uL (0.00-0.70); EOSINOPHILS % (AUTO) 4.8 % (0.0-8.0); IMMATURE GRANULOCYTE ABSOLUTE 0.02 K/uL (0-1); LYMPHOCYTES # (AUTO) 2.1 K/uL (1.0-4.8); LYMPHOCYTES % (AUTO) 32.5 % (21.0-51.0); MEAN CORPUSCULAR HGB CONC 30.2 g/dL (32.0-36.0); MEAN CORPUSCULAR VOLUME 92.8 fL (79-99); MONOCYTES # (AUTO) 0.7 K/uL (0.1-1.0); MONOCYTES % (AUTO) 10.8 % (3.0-13.0); NEUTROPHILS # (AUTO) 3.3 K/uL (1.8-7.7); PLATELET COUNT (AUTO) 171 K/uL (130-400); RED BLOOD CELL COUNT(AUTO) 4.85 MIL/uL (4.50-6.20); RED CELL DISTRIBUTION WIDTH 14.5 % (11.0-15.5); WHITE BLOOD COUNT (AUTO) 6.5 K/uL (4.8-10.8)
[2024-01-31] VITALS (11 sets, daily range): BP systolic 127–170; BP diastolic 63–95; PULSE 72–92; RESP 12–17; TEMP 97–97.4
[~2024-01-31] VITALS: Ht 177.8 cm; Wt 98.2 kg
[~2024-01-31 06:48] MED LIST: DORZ1DRO7 OP; FINA5TAB41 PO; LATA2.5D14 OP; PANT20TA18 PO; SERT-439 PO; SIMV-43 PO; TRAZ-185 PO
[2024-01-31] MEDS ORDERED: LIDOCAINE PF 100MG/5ML (2%) SYRINGE 5ML ONE (07:30)
[2024-01-31] MEDS ORDERED: rocuRONium bROMide 10MG/1ML 5ML VL ONE (07:30)
[2024-01-31] MEDS ORDERED: MIDAZOLAM HCL 1 MG/ML 2ML VIAL ONE (07:30)
[2024-01-31] MEDS ORDERED: proPOFol 10 MG/ML 20ML VIAL IV ONE (07:30)
[2024-01-31] MEDS ORDERED: FENTanyl CITRate PF 50 MCG/1 ML 2ML VIAL ONE (07:30)
[2024-01-31] MEDS: LACTATED RINGERS 1000ML 1,000 ML IV ONE (07:38)
[2024-01-31] MEDS: MEROPENEM 500 MG VIAL ONE (07:38)
[2024-01-31] MEDS ORDERED: FAMOTIDINE 20MG VIAL IV ONE (08:16)
[2024-01-31] MEDS ORDERED: acetaMINOPHEN 100 ML ONE (08:16)
[2024-01-31] MEDS: MEROPENEM 500 MG VIAL IVPB ONE ×2 (08:40)
[2024-01-31] MEDS ORDERED: dexaMETHasone SOD PHOSPHATE 4 MG/ML 1ML VIAL ONE (08:43)
[2024-01-31] MEDS ORDERED: ondanSETRON 4MG INJ ONE (08:43)
[2024-01-31] MEDS ORDERED: NEOSTIGMINE METHYLSULFATE 1MG/ML IV ONE (08:45)
[2024-01-31] MEDS ORDERED: GLYCOPYRROLATE 0.2 MG/ML 5 ML VIAL ONE (08:45)
[2024-01-31] MEDS ORDERED: phenylEPHRINE HCL 10 MG/ML 1ML VIAL IV ONE (08:48)
[2024-01-31] MEDS: PHENAZOpyridine HCL 200 MG TAB 200 MG TABLET ONE (10:27)
--- NOTE | 2024-01-31 10:41 | OP ---
DATE OF PROCEDURE: 01/31/2024 PREOPERATIVE DIAGNOSES: Right renal calculus, indwelling right ureteral stent, neurogenic bladder and history of urosepsis. POSTOPERATIVE DIAGNOSES: Right renal calculus, indwelling right ureteral stent, neurogenic bladder and history of urosepsis, sequential urethral strictures. ANESTHESIA: General endotracheal anesthesia. SURGEON: Jerilyn Davis MD. PROCEDURE PERFORMED: Right extracorporeal shockwave lithotripsy followed by cystoscopy, removal right ureteral stent and dilation of urethra. PREOPERATIVE INDICATIONS: This is an 83-year-old gentleman who approximately a month ago had urosepsis requiring emergent stenting. The patient had an obstructing right renal calculus and he did have a urine culture positive for multidrug resistant E. coli. The patient had been treated for his infection and is here today for definitive treatment of the obstructing stone with removal of the indwelling stent. Preoperatively, he received meropenem 500 mg intravenously. His preoperative creatinine is 1.2 with a GFR of 60 and he had a white blood cell count of 6.5. DESCRIPTION OF PROCEDURE: The patient was brought to the operating room and placed in the supine position. The lithotripter probe was placed at his right flank and under direct visualization with fluoroscopy the stone was identified. The stent appeared to be in good location. The patient then underwent extracorporeal shockwave lithotripsy at a rate of 1 shock per second and a maximum energy of 24 kilovolts. The stone fragmented beautifully and following the shockwave procedure, the patient was repositioned in the dorsal lithotomy position and sterilely draped and prepped. A cystoscope was passed into the patient's bladder and the stent was identified. A flexible grasping forceps was used to remove the stent and it was noted to be intact without calcifications. Following this, the patient underwent a dilation to 28-[place]izen [place] for sequential strictures. The patient does have a history of neurogenic bladder and self-catheterization 4 times daily and is starting to have some difficulty. Following the dilation, an 18-[place]izen [place] coude tipped Murry catheter with 10 mL balloon was inserted. After the balloon was inflated a drainage bag was attached and the patient was then transported to the recovery room in stable condition. The catheter will stay in for a week and he will come to the office next week for Murry catheter removal. At that time, we will order a KUB film to confirm resolution of the very visible stone. 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 I recommend at some point he get a contrast CT scan when he is recovered from his stone procedure. All this was discussed with the patient's . TID: [id number] RECEIPT: [id number]
--- NOTE | 2024-01-31 11:12 | NUR ---
Full and complete Discharge Instructions given to Patient and Family both verbally and in writing.. All questions answered. Voiced understanding to Surgical procedure, precautions and Follow Up. Murry Catheter education completed. Murry Catheter bag secured with gentle traction from OR. Provided urinaland Leg bag for urine drainage. Patient voiced understanding in full. PIV removed with catheter tip intact. Denies c/o pain or discomfort. D/C'd W/C to POV with Family to Home.
== END 2024-01-31 11:13 | disposition home or self-care (01) ==
LOC: DAH 06:48
PROVIDERS: ATTEND Urology
DX: N20.0 Calculus of kidney (principal); N31.8 Other neuromuscular dysfunction of bladder; F41.9 Anxiety disorder, unspecified; K21.9 Gastro-esophageal reflux disease without esophagitis; E78.5 Hyperlipidemia, unspecified; Z87.891 Personal history of nicotine dependence; Z79.899 Other long term (current) drug therapy
CPT/HCPCS: 80048; 85025; 36415; 93005; 50590; 52310; A6260; J1100; A4663 ×2; J7120 ×2; A4344; A4340; J3490 ×3; J3010; J2003; J2250; J2704; J2405; J2710; J2371; J2185 ×2; A4358 ×2; A4215 ×2; A4222 ×2; A4216 ×2; A4606; A4223 ×5; A4221 ×2; A4600; A4510